=== PATIENT | female | born 1935 | race Caucasian/White ===

== ENCOUNTER 2021-01-21 10:48 | Inpatient (IN) | payer MEDICARE ==
[2021-01-21 11:36] LABS: CHLORIDE,CL 103 mmol/L (98-107); SODIUM,NA 143 mmol/L (136-145)
--- NOTE | 2021-01-21 11:46 | EDM.PDOC ---
ED HPI GENERAL MEDICAL PROBLEM - General Chief Complaint: Lower Extremity Injury/Pain Stated Complaint: Left hip pain Time Seen by Provider: 01/21/21 11:00 Source of Information: Reports: Patient History Limitations: Reports: No Limitations - History of Present Illness INITIAL COMMENTS - FREE TEXT/NARRATIVE: Patient comes to ER with acute left sided low back pain that radiates into thigh. Also new numbness that affects lateral/anterior thigh that stretches down past knee. Severe pain with ambulation. Started suddenly while she was trying to get out of her chair on 01/13. Pain improves with rest/no weight bearing but is always present. No history of trauma/recent falls. Uses walker for ambulation. History of bilateral hip and knee replacement and significant degenerative spinal disease with scoliosis. No loss of bowel or bladder control but admits to some chronic urinary incontinence. Has had accidents however in bed/etc due to inability to get out of bed/chair due to the pain. Seen twice in ER in [facility] for same issue. Both time taken by EMS. Discharged after being evaluated both times. First time given steroids IV/PO along with Tramadol. Second time they gave her Valium. Plain films performed/no acute fractures identified per history. No advanced imaging performed. Also unable to get to her own kitchen to get food/prepare food and spent long periods of time without access to regular meals. Lives alone. Is in [place] due to family member being in area with hope to receive extra assistance, however comes to to ER due to continued severe pain and continued inability to perform ADLs. 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: Other Medication(s), Other (see below) Other Treatments [employer]PORATE WEBMASTER: Tramadol Left Hip Pain Score (Numeric/FACES): 5 - Related Data Allergies Allergy/AdvReac Type Severity Reaction Status Date / Time No Known Allergies Allergy Verified 01/21/21 10:50 Home Meds: Home Meds Aspirin [Aspirin EC] 1 tab PO DAILY 01/21/21 [History] Citalopram Hydrobromide [Celexa] 1 tab PO DAILY 01/21/21 [History] Furosemide [Lasix] 1 tab PO QPM PRN 01/21/21 [History] Furosemide [Lasix] 2 tab PO QAM 01/21/21 [History] Levothyroxine [Synthroid] 1 tab PO ASDIRECTED 01/21/21 [History] Levothyroxine [Synthroid] 1 tab PO ASDIRECTED 01/21/21 [History] allopurinoL [Zyloprim] 1 tab PO DAILY 01/21/21 [History] amLODIPine Besylate [Amlodipine Besylate] 1 tab PO DAILY 01/21/21 [History] buPROPion HCL [Bupropion Xl] 1 tab PO DAILY 01/21/21 [History] Past Medical History HEENT History: Reports: Impaired Vision Cardiovascular History: Reports: High Cholesterol, Hypertension Gastrointestinal History: Reports: Irritable Bowel Syndrome Genitourinary History: Reports: Chronic Renal Insuffiency, Renal Calculus, Urinary Incontinence Musculoskeletal History: Reports: Arthritis, Back Pain, Chronic, Gout, Neck Pain, Chronic, Osteoarthritis Psychiatric History: Reports: Anxiety, Depression Endocrine/Metabolic History: Reports: Diabetes, Type II, Hypothyroidism, Obesity/BMI 30+, Vitamin D Deficiency - Past Surgical History HEENT Surgical History: Reports: Cataract Surgery Respiratory Surgical History: Reports: Other (See Below) (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) GI Surgical History: Reports: Cholecystectomy Female Surgical History: Reports: Tubal Ligation Endocrine Surgical History: Reports: Thyroidectomy Musculoskeletal Surgical History: Reports: Carpal Tunnel, Hip Replacement, Knee Replacement, Shoulder Replacement, Shoulder Surgery - History Comment History Comment: Uses walker for ambulation Social & Family History - Tobacco Use Tobacco Use Status *Q: Former Tobacco User Used Tobacco, but Quit: Yes Month/Year Tobacco Last Used: 1959 Second Hand Smoke Exposure: No - Caffeine Use Caffeine Use: Reports: Coffee - Alcohol Use Alcohol Use History: Yes Alcohol Use in Last Twelve Months: No Alcohol Use Frequency: Not Used in Over 1 Year Alcohol Use Comment: Recovering alcoholic - Recreational Drug Use Recreational Drug Use: No Drug Use in Last 12 Months: No - Living Situation & Occupation Living situation: Reports: , Alone Occupation: Retired Review of Systems - Review of Systems Review Of Systems: See Below Constitutional: Denies: Chills, Diaphoresis, Fever Eyes: Reports: Glasses. Denies: Vision Change Nose: Reports: No Symptoms Mouth/Throat: Reports: No Symptoms Respiratory: Reports: No Symptoms Cardiovascular: Reports: No Symptoms GI/Abdominal: Reports: No Symptoms Genitourinary: Reports: Incontinence Musculoskeletal: Reports: Neck Pain, Back Pain, Joint Pain (left hip). Denies: Joint Swelling Skin: Reports: Bruising (new bruising noted inner thigh of affected left leg) Neurological: Reports: Numbness (left upper leg/just past left knee), Paresthesia, Difficulty Walking (significant pain with ambulation). Denies: Confusion, Dizziness, Headache, Trouble Speaking, Change in Speech Psychiatric: Reports: Anxiety (from pain) ED EXAM, GENERAL - Physical Exam Exam: See Below Exam Limited By: No Limitations General Appearance: Alert, Obese, Other (Obvious significant distress when attempting to ambulate/change positions. Improved when allowed to sit still in bed. ) Eye Exam: Bilateral Eye: EOMI, PERRL Ears: Hearing Grossly Normal Nose: No: Nasal Deformity, Nasal Swelling, Nasal Drainage Throat/Mouth: Normal Lips, Normal Voice, No Airway Compromise Head: Atraumatic, Normocephalic Neck: Supple, Non-Tender, Full Range of Motion Respiratory/Chest: No Respiratory Distress, Lungs Clear, Normal Breath Sounds, No Accessory Muscle Use, Chest Non-Tender Cardiovascular: Normal Peripheral Pulses, Regular Rate, Rhythm, No JVD, Systolic Murmur GI/Abdominal: Normal Bowel Sounds, Soft, Non-Tender, No Abnormal Bruit, Pelvis Stable (Female) Exam: Deferred Rectal (Female) Exam: Deferred Back Exam: Decreased Range of Motion (left low back severe pain when trying to raise leg off of bed), Paraspinal Tenderness (lumbar area/more so left side), Vertebral Tenderness (lumbar area/L-S junction), Other (+ straight leg raise on left). No: CVA Tenderness (L), CVA Tenderness (R), Muscle Spasm Extremities: Normal Capillary Refill, Pedal Edema (mild/bilateral), Leg Pain (left thight/hip area), Limited Range of Motion (Unable to move left leg at all without severe pain left low back/hip/thigh). No: Tia's Sign, Increased Warmth, Mottled, Pallor, Redness Neurological: Alert, Oriented, CN II-XII Intact, Normal Reflexes, Abnormal Gait (unable to ambulate without severe pain), Sensory/Motor Deficit, Other (numbness to light touch left leg anterior/lateral thigh. Ends just below left knee anteriorly) Psychiatric: Anxious Skin Exam: Warm, Dry, Ecchymosis (scattered bruising noted all 4 limbs, newer bruise moderately large noted medial left thigh) Course - Vital Signs Last Recorded V/S: Last Vital Signs Temp 36.6 C 01/21/21 11:13 Pulse 67 01/21/21 11:13 Resp 18 01/21/21 11:13 BP 178/75 H 01/21/21 11:13 Pulse Ox 99 01/21/21 11:13 - Orders/Labs/Meds Orders: Active Orders 24 hr Category Date Time Status CULTURE URINE [RM] Stat Lab 01/21/21 11:15 Received PRO B-TYPE NATRIUR PEPT,BNPPRO [CHEM] Stat Lab 01/21/21 11:56 Ordered Sodium Chloride 0.9% [Saline Flush] Med 01/21/21 12:01 Ordered 10 ml FLUSH ASDIRECTED PRN Saline Lock Insert [OM.PC] Routine Oth 01/21/21 12:01 Ordered Medication Orders Sodium Chloride (Sodium Chloride 0.9% 10 Ml Syringe) 10 ml FLUSH ASDIRECTED PRN PRN Reason: Keep Vein Open Labs: Laboratory Tests 01/21/21 01/21/21 01/21/21 Range/Units 11:15 11:15 11:15 WBC 9.2 (4.0-10.2) K/uL RBC 4.62 (3.77-5.09) M/uL Hgb 14.3 (11.7-15.5) g/dL Hct 43.7 (34.0-46.0) % MCV 94.6 (84.0-98.0) fL MCH 31.0 (28.2-33.3) pg MCHC 32.7 (31.7-36.0) g/dL RDW 14.6 H (11.2-14.1) % Plt Count 268 (150-350) K/uL Neut % (Auto) 72.0 (45.0-80.0) % Lymph % (Auto) 18.1 (10.0-50.0) % [place] % (Auto) 8.6 (2.0-14.0) % Eos % (Auto) 1.1 (0.0-5.0) % Baso % (Auto) 0.2 (0.0-2.0) % Neut # (Auto) 6.60 (1.40-7.00) K/uL Lymph # (Auto) 1.66 (0.50-3.50) K/uL [place] # (Auto) 0.79 (0.00-1.00) K/uL Eos # (Auto) 0.10 (0.00-0.50) K/uL Baso # (Auto) 0.02 (0.00-0.20) K/uL Sodium 143 (136-145) mmol/L Potassium 4.0 (3.5-5.1) mmol/L Chloride 103 (98-107) mmol/L Carbon Dioxide 27.6 (21.0-32.0) mmol/L BUN 33 H (7-18) mg/dL Creatinine 1.49 H (0.51-1.17) mg/dL Est Cr Clr Drug Dosing TNP Estimated GFR (MDRD) 33 mL/min Glucose 127 H (70-99) mg/dL Calcium 9.5 (8.5-10.1) mg/dL Magnesium 2.3 (1.8-2.4) mg/dL Total Bilirubin 1.2 H (0.2-1.0) mg/dL AST 21 (15-37) U/L ALT 28 (12-78) U/L Alkaline Phosphatase 69 (46-116) IU/L Total Protein 6.9 (6.4-8.2) g/dL Albumin 3.7 (3.4-5.0) g/dL Specimen Type Urincc Urine Color Yellow Urine Appearance Slightly cloudy Urine pH 5.5 (5.0-9.0) Ur Specific [place] 1.020 (1.005-1.030) Urine Protein 100 H (NEGATIVE) mg/dL Urine Glucose (UA) Negative (NEGATIVE) mg/dL Urine Ketones Trace H (NEGATIVE) mg/dL Urine Occult Blood Negative (NEGATIVE) Urine Nitrite Negative (NEGATIVE) Urine Bilirubin Small H (NEGATIVE) Urine Urobilinogen 0.2 (0.2-1.0) E.U./dL Ur Leukocyte Esterase Moderate H (NEGATIVE) Urine RBC 0-5 /HPF Urine WBC 10-20 H /HPF Ur Epithelial Cells Moderate H /LPF Urine Bacteria Few (NONE TO FEW) /HPF Meds: Medications Generic Name Dose Route Start Last Admin Trade Name Freq PRN Reason Stop Dose Admin Sodium Chloride 10 ml 01/21/21 12:01 Sodium Chloride 0.9% 10 Ml Syringe FLUSH ASDIRECTED PRN Keep Vein Open Discontinued Medications Generic Name Dose Route Start Last Admin Trade Name Freq PRN Reason Stop Dose Admin Amlodipine Besylate 10 mg 01/21/21 12:00 Amlodipine 5 Mg Tab PO 01/21/21 12:01 ONETIME ONE Diazepam 5 mg 01/21/21 12:00 Diazepam 5 Mg Tab PO 01/21/21 12:01 ONETIME ONE Furosemide 40 mg 01/21/21 12:00 Furosemide 40 Mg Tab PO 01/21/21 12:01 ONETIME ONE - Re-Assessments/Exams Free Text/Narrative Re-Assessment/Exam: 01/21/21 12:15 BP noted to be elevated/patient has not taken her HTN meds this morning. Elevated BPs note and patient's morning BP meds given in ER. Normal WBC. Small amount WBCs noted on UA. Patient denies UTI complaints. Will order UC for further evaluation. GFR 33. This is actually an improvement per patient as previously she has been as low as 27-28. Given the pattern of pain/numbness differential includes disc injury/nerve root impingement. Current plan is to admit patient for pain control and further evaluation of the new pain and associated neuro changes. Departure - Departure Time of Disposition: 12:18 Disposition: Admitted As Inpatient 68 Condition: Good Clinical Impression: Acute pain of left hip, Numbness of left lower extremity, Impaired mobility and ADLs Left low back pain Qualifiers: Chronicity: acute Sciatica presence: unspecified whether sciatica present Qualified Code(s): M54.5 - Low back pain - Discharge Information *PRESCRIPTION DRUG MONITORING PROGRAM REVIEWED*: Not Applicable *COPY OF PRESCRIPTION DRUG MONITORING REPORT IN PATIENT [place]: Not Applicable Referrals: PCP,Unknown [Primary Care Provider] - Forms: ED Department Discharge Sepsis Event Note (ED) - Evaluation Sepsis Screening Result: No Definite Risk - Focused Exam Vital Signs: Vital Signs Temp Pulse Resp BP Pulse Ox 01/21/21 11:13 36.6 C 67 18 178/75 H 99 - Problem List & Annotations (1) Acute pain of left hip SNOMED Code(s): 29676973 Code(s): M25.552 - PAIN IN LEFT HIP Status: Acute Priority: High Current Visit: Yes Onset Date: 01/13/21 Annotation/Comment:: Acute/severe. No improvement despite pain medications/muscle relaxants/steroids. Unable to perform ADLs/feed self. Admit for pain control, further imaging, and PT/OT (2) Left low back pain SNOMED Code(s): 066063129 Code(s): M54.5 - LOW BACK PAIN Status: Acute Priority: High Current Visit: Yes Onset Date: 01/13/21 Annotation/Comment:: Some degree of chronic low back pain and neck pain. This is new acute pain. As above. Will perform CT imaging for better visualization (patient did have plain films performed during ER visit in [place]) and to look for disc herniation/nerve impingement. Qualifiers: Chronicity: acute Sciatica presence: unspecified whether sciatica present Qualified Code(s): M54.5 - Low back pain (3) Numbness of left lower extremity SNOMED Code(s): 578448810 Code(s): R20.0 - ANESTHESIA OF SKIN Status: Acute Priority: High Current Visit: Yes Onset Date: 01/13/21 Annotation/Comment:: As above (4) Impaired mobility and ADLs SNOMED Code(s): 278191048, 927581702 Code(s): Z74.09 - OTHER REDUCED MOBILITY; Z78.9 - OTHER SPECIFIED HEALTH STATUS Status: Acute Priority: High Current Visit: Yes Onset Date: 01/13/21 Annotation/Comment:: as above. Currently unable to perform ADLs at home such as obtaining food/dressing self/toileting (5) Hypertension SNOMED Code(s): 67107850 Code(s): I10 - ESSENTIAL (PRIMARY) HYPERTENSION Status: Chronic Priority: Medium Current Visit: Yes Annotation/Comment:: Historically patient runs high per history. Attempts at further reduction have led to syncopal events. Observe trends. Qualifiers: Hypertension type: primary hypertension Qualified Code(s): I10 - Essential (primary) hypertension (6) Diabetes mellitus, insulin dependent (IDDM), controlled SNOMED Code(s): 37235539, 653776744, 163737094 Code(s): SHU6486 - Status: Chronic Priority: Low Current Visit: No Annotation/Comment:: Diet controlled (7) Depression with anxiety SNOMED Code(s): 781003523 Code(s): F41.8 - OTHER SPECIFIED ANXIETY DISORDERS Status: Chronic Priority: Medium Current Visit: Yes Annotation/Comment:: Increased anxiety since pain started 01/13 (8) History of gout SNOMED Code(s): 672114503 Code(s): Z87.39 - PERSONAL HISTORY OF DISEASES OF THE MS SYS AND CONN TISS Status: Chronic Priority: Low Current Visit: No Annotation/Comment:: Taking Allopurinol. No recent problems. (9) Hypothyroidism SNOMED Code(s): 80277950 Code(s): E03.9 - HYPOTHYROIDISM, UNSPECIFIED Status: Chronic Priority: Low Current Visit: No Annotation/Comment:: On medication for this and routinely monitored by PCP Qualifiers: Hypothyroidism type: unspecified Qualified Code(s): E03.9 - Hypothyroidism, unspecified - Problem List Review Problem List Initiated/Reviewed/Updated: Yes - My Orders Last 24 Hours: My Active Orders 01/21/21 11:15 CULTURE URINE [RM] Stat 01/21/21 11:56 PRO B-TYPE NATRIUR PEPT,BNPPRO [CHEM] Stat 01/21/21 12:01 Sodium Chloride 0.9% [Saline Flush] 10 ml FLUSH ASDIRECTED PRN Saline Lock Insert [OM.PC] Routine - Assessment/Plan Admission H&P: Please use this note as an admission H&P Last 24 Hours: My Active Orders 01/21/21 11:15 CULTURE URINE [RM] Stat 01/21/21 11:56 PRO B-TYPE NATRIUR PEPT,BNPPRO [CHEM] Stat 01/21/21 12:01 Sodium Chloride 0.9% [Saline Flush] 10 ml FLUSH ASDIRECTED PRN Saline Lock Insert [OM.PC] Routine Assessment:: as above Plan: as above. Anticipate 3-4 day stay depending on clinical course and ability to achieve pain control/be able to safely perform ADLs. May need to consider Swing Bed. PT/OT consult.
[2021-01-21] MEDS ORDERED: amLODIPine 5 MG Tab PO ONE (12:00)
[2021-01-21] MEDS ORDERED: Furosemide 40 MG Tab PO ONE (12:00)
[2021-01-21] MEDS ORDERED: Diazepam 5 MG Tab PO ONE (12:00)
[2021-01-21] MEDS ORDERED: Sodium Chloride 0.9% 10 ML Syringe FLUSH PRN (12:01)
[2021-01-21] MEDS ORDERED: Ondansetron 4 MG/2 ML SDV IVPUSH PRN (13:00)
[2021-01-21] MEDS ORDERED: Levothyroxine 100 MCG Tab PO ONE (13:00)
[2021-01-21] MEDS ORDERED: Acetaminophen 325 MG Tab PO PRN (13:00)
[2021-01-21] MEDS ORDERED: traMADol 50 MG Tab PO PRN (13:00)
[2021-01-21] MEDS: buPROPion 150 MG Tab.ER PO SCH (13:41)
[2021-01-21] MEDS: Allopurinol 100 MG Tab PO SCH (13:41)
[2021-01-21] MEDS: methylPREDNISolone Sodium Succinate 40 MG/1 ML SDV IVPUSH SCH (13:41)
[2021-01-21] MEDS: Citalopram 20 MG Tab PO SCH (13:41)
[2021-01-21] MEDS: Aspirin 81 MG Tab.EC PO SCH (13:41)
[2021-01-21] MEDS ORDERED: Losartan 50 MG Tab PO ONE (19:00)
--- NOTE | 2021-01-21 19:04 | PCM.SN.2 ---
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 BPs noted to be running in 180s/80. Call placed to [facility] where patient is followed by Nephrology. circus hand MD, , recommended starting patient on 25mg Losartan. If renal labs remain stable over the next week can consider increasing dose to 50mg daily if needed.
[2021-01-21] MEDS: Acetaminophen Soln 160 MG/5 ML UD Cup PO PRN (21:56)
[2021-01-22] MEDS ORDERED: Diazepam 5 MG Tab PO PRN
[2021-01-22] MEDS: Acetaminophen Soln 160 MG/5 ML UD Cup PO PRN (04:22)
[2021-01-22] MEDS ORDERED: Furosemide 40 MG Tab PO SCH (08:00)
[2021-01-22] MEDS: buPROPion 150 MG Tab.ER PO SCH (08:05)
[2021-01-22] MEDS: Losartan 50 MG Tab PO SCH (08:07)
[2021-01-22] MEDS: amLODIPine 5 MG Tab PO SCH (08:09)
[2021-01-22] MEDS: Citalopram 20 MG Tab PO SCH (08:11)
[2021-01-22] MEDS: Levothyroxine 88 MCG Tab PO SCH (08:11)
[2021-01-22] MEDS: Aspirin 81 MG Tab.EC PO SCH (08:11)
[2021-01-22] MEDS: Enoxaparin 30 MG/0.3 ML Syringe SUBCUT SCH (08:12)
[2021-01-22] MEDS: Allopurinol 100 MG Tab PO SCH (08:12)
[2021-01-22] MEDS: methylPREDNISolone Sodium Succinate 40 MG/1 ML SDV IVPUSH SCH (08:14)
[2021-01-22] MEDS: traMADol 50 MG Tab PO SCH ×2 (13:07→19:30)
--- NOTE | 2021-01-22 13:19 | PCM.PN ---
- General Info Date of Service: 01/22/21 Admission Dx/Problem (Free Text): Acute severe left low back/hip/thigh pain. Subjective Update: Still with severe pain when ambulating. Feels overall improved however and feels that receiving regular meals/having access to fluids contributed to feeling better. Functional Status: Reports: Other (Pain improved but still severe at times, particularly with ambulation) Pain Score: 4 - Review of Systems General: Denies: Fever, Fatigue, Malaise, Chills, Night Sweats HEENT: Reports: Glasses Pulmonary: Reports: No Symptoms Cardiovascular: Reports: No Symptoms Gastrointestinal: Reports: Diarrhea. Denies: Abdominal Pain, Hematochezia, Nausea, Vomiting Genitourinary: Reports: No Symptoms Musculoskeletal: Reports: Back Pain, Leg Pain, Joint Pain Skin: Reports: Bruising (left inner thigh, plus scattered bruises she attributes to thin skin) Neurological: Reports: Numbness (left thigh), Difficulty Walking, Gait Disturbance. Denies: Confusion, Dizziness, Headache, Trouble Speaking, Change in Speech Psychiatric: Reports: No Symptoms - Patient Data Vitals - Most Recent: Last Vital Signs Temp 36.4 C 01/22/21 12:00 Pulse 64 01/22/21 12:00 Resp 16 01/22/21 12:00 BP 140/72 01/22/21 12:00 Pulse Ox 96 01/22/21 12:00 Weight - Most Recent: 90.718 kg I&O - Last 24 Hours: Intake & Output 01/21/21 01/22/21 01/22/21 22:59 06:59 14:59 Intake Total 240 870 Balance 240 870 Lab Results Last 24 Hours: Laboratory Results - last 24 hr 01/21/21 01/22/21 01/22/21 Range/Units 16:34 07:10 07: WBC 9.8 (4.0-10.2) K/uL RBC 4.09 (3.77-5.09) M/uL Hgb 12.7 D (11.7-15.5) g/dL Hct 38.9 (34.0-46.0) % MCV 95.1 (84.0-98.0) fL MCH 31.1 (28.2-33.3) pg MCHC 32.6 (31.7-36.0) g/dL RDW 14.4 H (11.2-14.1) % Plt Count 237 (150-350) K/uL Neut % (Auto) 77.7 (45.0-80.0) % Lymph % (Auto) 13.0 (10.0-50.0) % [place] % (Auto) 8.7 (2.0-14.0) % Eos % (Auto) 0.4 (0.0-5.0) % Baso % (Auto) 0.2 (0.0-2.0) % Neut # (Auto) 7.62 H (1.40-7.00) K/uL Lymph # (Auto) 1.28 (0.50-3.50) K/uL [place] # (Auto) 0.85 (0.00-1.00) K/uL Eos # (Auto) 0.04 (0.00-0.50) K/uL Baso # (Auto) 0.02 (0.00-0.20) K/uL Sodium (136-145) mmol/L Potassium (3.5-5.1) mmol/L Chloride (98-107) mmol/L Carbon Dioxide (21.0-32.0) mmol/L BUN (7-18) mg/dL Creatinine (0.51-1.17) mg/dL Est Cr Clr Drug Dosing mL/min Estimated GFR (MDRD) mL/min Glucose (70-99) mg/dL POC Glucose 145 H 117 H (70-99) mg/dL Calcium (8.5-10.1) mg/dL 01/22/21 01/22/21 Range/Units 07:21 11:28 WBC (4.0-10.2) K/uL RBC (3.77-5.09) M/uL Hgb (11.7-15.5) g/dL Hct (34.0-46.0) % MCV (84.0-98.0) fL MCH (28.2-33.3) pg MCHC (31.7-36.0) g/dL RDW (11.2-14.1) % Plt Count (150-350) K/uL Neut % (Auto) (45.0-80.0) % Lymph % (Auto) (10.0-50.0) % [place] % (Auto) (2.0-14.0) % Eos % (Auto) (0.0-5.0) % Baso % (Auto) (0.0-2.0) % Neut # (Auto) (1.40-7.00) K/uL Lymph # (Auto) (0.50-3.50) K/uL [place] # (Auto) (0.00-1.00) K/uL Eos # (Auto) (0.00-0.50) K/uL Baso # (Auto) (0.00-0.20) K/uL Sodium 145 (136-145) mmol/L Potassium 4.1 (3.5-5.1) mmol/L Chloride 106 (98-107) mmol/L Carbon Dioxide 28.9 (21.0-32.0) mmol/L BUN 43 H (7-18) mg/dL Creatinine 1.64 H (0.51-1.17) mg/dL Est Cr Clr Drug Dosing 22.44 mL/min Estimated GFR (MDRD) 30 mL/min Glucose 117 H (70-99) mg/dL POC Glucose 127 H (70-99) mg/dL Calcium 8.8 (8.5-10.1) mg/dL Med Orders - Current: Current Medications Acetaminophen (Acetaminophen Soln 160 Mg/5 Ml Ud Cup) 650 mg PO Q6H PRN PRN Reason: Pain (mild 1-3) Last Admin: 01/22/21 04:22 Dose: 650 mg Documented by: Allopurinol (Allopurinol 100 Mg Tab) 100 mg PO DAILY [facility] Last Admin: 01/22/21 08:12 Dose: 100 mg Documented by: Amlodipine Besylate (Amlodipine 5 Mg Tab) 10 mg PO DAILY [facility] Last Admin: 01/22/21 08:09 Dose: 10 mg Documented by: Aspirin (Aspirin 81 Mg Tab.Ec) 81 mg PO DAILY [facility] Last Admin: 01/22/21 08:11 Dose: 81 mg Documented by: Bupropion HCl (Bupropion 150 Mg Tab.Er) 150 mg PO DAILY [facility] Last Admin: 01/22/21 08:05 Dose: 150 mg Documented by: Cholecalciferol (Cholecalciferol (Vitamin D3) Drops 400 Units/1 Ml 50 Ml Bottle) 2,000 units PO DAILY [facility] Citalopram Hydrobromide (Citalopram 20 Mg Tab) 40 mg PO DAILY [facility] Last Admin: 01/22/21 08:11 Dose: 40 mg Documented by: Diazepam (Diazepam 5 Mg Tab) 5 mg PO Q12H PRN PRN Reason: Spasms Enoxaparin Sodium (Enoxaparin 30 Mg/0.3 Ml Syringe) 30 mg SUBCUT Q24H [facility] Last Admin: 01/22/21 08:12 Dose: 30 mg Documented by: Furosemide (Furosemide 40 Mg Tab) 40 mg PO QAM [facility] Last Admin: 01/22/21 08:06 Dose: 40 mg Documented by: Furosemide (Furosemide 20 Mg Tab) 20 mg PO DAILY [facility] Stop: 01/28/21 08:01 Lactobacillus Rhamnosus (Lactobacillus Rhamnosus Gg (Probiotic) Cap) 1 cap PO BID [facility] Levothyroxine Sodium (Levothyroxine 88 Mcg Tab) 88 mcg PO Q48H [facility] Last Admin: 01/22/21 08:11 Dose: 88 mcg Documented by: Levothyroxine Sodium (Levothyroxine 100 Mcg Tab) 100 mcg PO Q48H [facility] Losartan Potassium (Losartan 50 Mg Tab) 25 mg PO DAILY [facility] Last Admin: 01/22/21 08:07 Dose: 25 mg Documented by: Methylprednisolone Sodium Succinate (Methylprednisolone Sodium Succinate 40 Mg/1 Ml Sdv) 40 mg IVPUSH DAILY [facility] Stop: 01/23/21 08:01 Last Admin: 01/22/21 08:14 Dose: 40 mg Documented by: Ondansetron HCl (Ondansetron 4 Mg/2 Ml Sdv) 4 mg IVPUSH Q6H PRN PRN Reason: Nausea/Vomiting Sodium Chloride (Sodium Chloride 0.9% 10 Ml Syringe) 10 ml FLUSH ASDIRECTED PRN PRN Reason: Keep Vein Open Tramadol HCl (Tramadol 50 Mg Tab) 50 mg PO Q4H PRN PRN Reason: Pain (moderate 4-6) Last Admin: 01/22/21 08:13 Dose: 50 mg Documented by: Tramadol HCl (Tramadol 50 Mg Tab) 50 mg PO Q6H [facility] Last Admin: 01/22/21 13:07 Dose: 50 mg Documented by: Discontinued Medications Acetaminophen (Acetaminophen 325 Mg Tab) 650 mg PO Q4H PRN PRN Reason: Pain (Mild 1-3)/fever Amlodipine Besylate (Amlodipine 5 Mg Tab) 10 mg PO ONETIME ONE Stop: 01/21/21 12:01 Last Admin: 01/21/21 12:07 Dose: 10 mg Documented by: Diazepam (Diazepam 5 Mg Tab) 5 mg PO ONETIME ONE Stop: 01/21/21 12:01 Last Admin: 01/21/21 12:07 Dose: 5 mg Documented by: Furosemide (Furosemide 40 Mg Tab) 40 mg PO ONETIME ONE Stop: 01/21/21 12:01 Last Admin: 01/21/21 12:07 Dose: 40 mg Documented by: Levothyroxine Sodium (Levothyroxine 100 Mcg Tab) 100 mcg PO ONETIME ONE Stop: 01/21/21 13:01 Last Admin: 01/21/21 13:41 Dose: 100 mcg Documented by: Losartan Potassium (Losartan 50 Mg Tab) 25 mg PO ONETIME ONE Stop: 01/21/21 19:01 Last Admin: 01/21/21 19:30 Dose: 25 mg Documented by: - Exam Quality Assessment: DVT Prophylaxis General: Alert, Oriented, Cooperative, No Acute Distress HEENT: Pupils Equal, Pupils Reactive, EOMI, Mucous Membr. Moist/[place] Neck: Supple Lungs: Clear to Auscultation, Rub Cardiovascular: Regular Rate, Regular Rhythm GI/Abdominal Exam: Soft, Non-Tender, No Distention (Female) Exam: Deferred Back Exam: Paraspinal Tenderness (low back/left greater than right), Vertebral Tenderness (lumbar spine area) Extremities: Normal Capillary Refill, Pedal Edema (mild/bilat. ), Limited Range of Motion (left leg/hip), Other (Tender with palpation over medial thigh/patient has bruise in same area). No: Joint Swelling, Tia's Sign, Increased Warmth, Mottled, Pallor, Redness Peripheral Pulses: 2+: Dorsalis Pedis (L), Dorsalis Pedis (R) Skin: Warm, Dry, Intact, Ecchymosis Neurological: No New Focal Deficit Psy/Mental Status: Alert, Normal Affect, Normal Mood - Patient Data Lab Results Last 24 hrs: Laboratory Results - last 24 hr 01/21/21 01/22/21 01/22/21 Range/Units 16:34 07:10 07:21 WBC 9.8 (4.0-10.2) K/uL RBC 4.09 (3.77-5.09) M/uL Hgb 12.7 D (11.7-15.5) g/dL Hct 38.9 (34.0-46.0) % MCV 95.1 (84.0-98.0) fL MCH 31.1 (28.2-33.3) pg MCHC 32.6 (31.7-36.0) g/dL RDW 14.4 H (11.2-14.1) % Plt Count 237 (150-350) K/uL Neut % (Auto) 77.7 (45.0-80.0) % Lymph % (Auto) 13.0 (10.0-50.0) % [place] % (Auto) 8.7 (2.0-14.0) % Eos % (Auto) 0.4 (0.0-5.0) % Baso % (Auto) 0.2 (0.0-2.0) % Neut # (Auto) 7.62 H (1.40-7.00) K/uL Lymph # (Auto) 1.28 (0.50-3.50) K/uL [place] # (Auto) 0.85 (0.00-1.00) K/uL Eos # (Auto) 0.04 (0.00-0.50) K/uL Baso # (Auto) 0.02 (0.00-0.20) K/uL Sodium (136-145) mmol/L Potassium (3.5-5.1) mmol/L Chloride (98-107) mmol/L Carbon Dioxide (21.0-32.0) mmol/L BUN (7-18) mg/dL Creatinine (0.51-1.17) mg/dL Est Cr Clr Drug Dosing mL/min Estimated GFR (MDRD) mL/min Glucose (70-99) mg/dL POC Glucose 145 H 117 H (70-99) mg/dL Calcium (8.5-10.1) mg/dL 01/22/21 01/22/21 Range/Units 07:21 11:28 WBC (4.0-10.2) K/uL RBC (3.77-5.09) M/uL Hgb (11.7-15.5) g/dL Hct (34.0-46.0) % MCV (84.0-98.0) fL MCH (28.2-33.3) pg MCHC (31.7-36.0) g/dL RDW (11.2-14.1) % Plt Count (150-350) K/uL Neut % (Auto) (45.0-80.0) % Lymph % (Auto) (10.0-50.0) % [place] % (Auto) (2.0-14.0) % Eos % (Auto) (0.0-5.0) % Baso % (Auto) (0.0-2.0) % Neut # (Auto) (1.40-7.00) K/uL Lymph # (Auto) (0.50-3.50) K/uL [place] # (Auto) (0.00-1.00) K/uL Eos # (Auto) (0.00-0.50) K/uL Baso # (Auto) (0.00-0.20) K/uL Sodium 145 (136-145) mmol/L Potassium 4.1 (3.5-5.1) mmol/L Chloride 106 (98-107) mmol/L Carbon Dioxide 28.9 (21.0-32.0) mmol/L BUN 43 H (7-18) mg/dL Creatinine 1.64 H (0.51-1.17) mg/dL Est Cr Clr Drug Dosing 22.44 mL/min Estimated GFR (MDRD) 30 mL/min Glucose 117 H (70-99) mg/dL POC Glucose 127 H (70-99) mg/dL Calcium 8.8 (8.5-10.1) mg/dL Result Diagrams: 01/22/21 07:21 01/22/21 07:21 Sepsis Event Note - Evaluation Sepsis Screening Result: No Definite Risk - Focused Exam Vital Signs: Vital Signs Temp Pulse Pulse Resp BP BP Pulse Ox 01/22/21 12:00 36.4 C 64 16 140/72 96 01/22/21 10:45 152/75 H 01/22/21 08:09 185/70 H 01/22/21 08:07 185/70 H 01/22/21 06:00 36.4 C 58 L 14 200/77 H 98 - Problem List & Annotations (1) Acute pain of left hip SNOMED Code(s): 64103363 Code(s): M25.552 - PAIN IN LEFT HIP Status: Acute Priority: High Current Visit: Yes Onset Date: 01/13/21 Annotation/Comment:: Acute/severe. No improvement despite pain medications/muscle relaxants/steroids. Unable to perform ADLs/feed self. Admitted for pain control, further imaging, and PT/OT. 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 However patient also has soft tissue bruising and tenderness medial left thigh and now says she felt a "pop" when pain started so there could also be a soft tissue tear involved. Consider MRI next week when locally available. PT/OT assessed patient and she is candidate for Swing Bed given the severe sudden decrease in level of functioning and current physical pain/limitations. (2) Left low back pain SNOMED Code(s): 821012981 Code(s): M54.5 - LOW BACK PAIN Status: Acute Priority: High Current Visit: Yes Onset Date: 01/13/21 Qualifiers: Chronicity: acute Sciatica presence: unspecified whether sciatica present Qualified Code(s): M54.5 - Low back pain Annotation/Comment:: Some degree of chronic low back pain and neck pain. This is new acute left hip/low back/medial thigh pain. As above. (3) Numbness of left lower extremity SNOMED Code(s): 537171095 Code(s): R20.0 - ANESTHESIA OF SKIN Status: Acute Priority: High Current Visit: Yes Onset Date: 01/13/21 Annotation/Comment:: New. As above (4) Impaired mobility and ADLs SNOMED Code(s): 084002032, 071877319 Code(s): Z74.09 - OTHER REDUCED MOBILITY; Z78.9 - OTHER SPECIFIED HEALTH STATUS Status: Acute Priority: High Current Visit: Yes Onset Date: 01/13/21 Annotation/Comment:: as above. Currently unable to perform ADLs at home such as obtaining food/dressing self/toileting. (5) Hypertension SNOMED Code(s): 44661155 Code(s): I10 - ESSENTIAL (PRIMARY) HYPERTENSION Status: Chronic Priority: Medium Current Visit: Yes Qualifiers: Hypertension type: primary hypertension Qualified Code(s): I10 - Essential (primary) hypertension Annotation/Comment:: Historically patient runs high per history. Losartan added to regimen. BUN/Cr a bit higher today despite patient's rehydration. Will continue to monitor with daily labs. Will temporarily decrease daily Lasix to 20mg daily to decrease stress on renal function. BPs currently improved. Continue to observe trends. (6) Diabetes mellitus, insulin dependent (IDDM), controlled SNOMED Code(s): 19310783, 347925276, 923131080 Code(s): MSA0036 - Status: Chronic Priority: Low Current Visit: No Annotation/Comment:: Diet controlled. Patient usually adhears to a Low Carb diet which will not be available during inpatient stay. Glucose at home usually under 110. Anticipate worsening glucose control because of this but patient will resume usual diet at time of discharge. (7) Depression with anxiety SNOMED Code(s): 667194465 Code(s): F41.8 - OTHER SPECIFIED ANXIETY DISORDERS Status: Chronic Priority: Medium Current Visit: Yes Annotation/Comment:: Increased anxiety since pain started 01/13. Improved today on 01/22 (8) History of gout SNOMED Code(s): 661985444 Code(s): Z87.39 - PERSONAL HISTORY OF DISEASES OF THE MS SYS AND CONN TISS Status: Chronic Priority: Low Current Visit: No Annotation/Comment:: Taking Allopurinol. No recent problems. (9) Hypothyroidism SNOMED Code(s): 57672235 Code(s): E03.9 - HYPOTHYROIDISM, UNSPECIFIED Status: Chronic Priority: Low Current Visit: No Qualifiers: Hypothyroidism type: unspecified Qualified Code(s): E03.9 - Hypothyroidism, unspecified Annotation/Comment:: On medication for this and routinely monitored by PCP (10) Dehydration SNOMED Code(s): 84426653 Code(s): E86.0 - DEHYDRATION Status: Acute Priority: Medium Current Visit: Yes Annotation/Comment:: Hgb 14.3 dropped to 12.7 today. Suspect drop is due to patient being dehydrated as result of immobility and being unable to perform ADLs such as get to kitchen for past week. She is feeling improved today after having access to fluids/regular meals. - Problem List Review Problem List Initiated/Reviewed/Updated: Yes - My Orders Last 24 Hours: My Active Orders 01/21/21 12:33 Patient Status [ADT] Routine Blood Glucose Check, Bedside [RC] TIDMEALS May Shower [RC] ASDIRECTED Oxygen Therapy [RC] .PRN Up With Assistance [RC] ASDIRECTED VTE/DVT Education [RC] PER UNIT ROUTINE Vital Signs [RC] Q6HR Consult to Case Management/Publisher Assistant [CONS] Routine OT Evaluation and Treatment [CONS] Routine PT Evaluation and Treatment [CONS] Routine Resuscitation Status Routine 01/21/21 12:34 Pulse Oximetry [RC] .PRN 01/21/21 12:45 methylPREDNISolone Sod Succ [Solu-MEDROL] 40 mg IVPUSH DAILY 01/21/21 12:50 Lumbar Spine wo Cont [CT] Routine 01/21/21 13:00 Aspirin [Halfprin] 81 mg PO DAILY Citalopram [Celexa] 40 mg PO DAILY Ondansetron [Zofran] 4 mg IVPUSH Q6H PRN allopurinoL [Zyloprim] 100 mg PO DAILY buPROPion [Wellbutrin XL] 150 mg PO DAILY traMADol [Ultram] 50 mg PO Q4H PRN 01/21/21 21:28 Acetaminophen [Tylenol Solution 160 MG/5 ML UD Cup] 650 mg PO Q6H PRN 01/22/21 00:00 diazePAM [Valium.] 5 mg PO Q12H PRN 01/22/21 08:00 Furosemide [Lasix] 40 mg PO QAM Levothyroxine [Synthroid] 88 mcg PO Q48H Losartan [Cozaar] 25 mg PO DAILY amLODIPine [Norvasc] 10 mg PO DAILY 01/22/21 08:30 Enoxaparin [Lovenox] 30 mg SUBCUT Q24H 01/22/21 13:08 VITAMIN D,25-HYDROXY [CHEM] Routine 01/22/21 14:00 traMADol [Ultram] 50 mg PO Q6H 01/22/21 18:00 Lactobacillus Rhamnosus GG [Culturelle] 1 cap PO BID 01/23/21 05:15 BASIC METABOLIC PANEL,BMP [CHEM] AM CBC WITH AUTO DIFF [HEME] AM 01/23/21 08:00 Cholecalciferol (Vitamin D3) [D--JUDITH Drops] 2,000 units PO DAILY Furosemide [Lasix] 20 mg PO DAILY Levothyroxine [Synthroid] 100 mcg PO Q48H - Assessment Assessment:: as above - Plan Plan:: As above. Anticipate additional 1-2 days inpatient care with continued PT/OT. Patient will likely need transfer to Swing Bed for continued PT and OT given current continued severe pain with activity and inability to perform ADLs.
[2021-01-22] MEDS: Lactobacillus Rhamnosus GG (Probiotic) Cap PO SCH (18:33)
[2021-01-23] MEDS: traMADol 50 MG Tab PO SCH ×4 (01:07→20:41)
[2021-01-23] MEDS ORDERED: Levothyroxine 100 MCG Tab PO SCH (08:00)
[2021-01-23 08:09] LABS: HEMOGLOBIN A1C 5.9 % (4.3-5.7)
[2021-01-23] MEDS: methylPREDNISolone Sodium Succinate 40 MG/1 ML SDV IVPUSH SCH (08:18)
[2021-01-23] MEDS: Enoxaparin 30 MG/0.3 ML Syringe SUBCUT SCH (08:19)
[2021-01-23] MEDS: Cholecalciferol (Vitamin D3) Drops 400 Units/1 ML 50 ML Bottle PO SCH (08:23)
[2021-01-23] MEDS: Lactobacillus Rhamnosus GG (Probiotic) Cap PO SCH ×2 (08:28→17:32)
[2021-01-23] MEDS: Allopurinol 100 MG Tab PO SCH (08:29)
[2021-01-23] MEDS: Furosemide 20 MG Tab PO SCH (08:30)
[2021-01-23] MEDS: buPROPion 150 MG Tab.ER PO SCH (08:32)
[2021-01-23] MEDS: Aspirin 81 MG Tab.EC PO SCH (08:32)
[2021-01-23] MEDS: Losartan 50 MG Tab PO SCH (08:33)
[2021-01-23] MEDS: amLODIPine 5 MG Tab PO SCH (08:34)
[2021-01-23] MEDS: Citalopram 20 MG Tab PO SCH (08:35)
[2021-01-23] MEDS: hydrALAZINE 10 MG Tab PO SCH ×2 (13:46→20:41)
--- NOTE | 2021-01-23 14:27 | PCM.PN ---
- General Info Date of Service: 01/23/21 Admission Dx/Problem (Free Text): Acute severe left low back/hip/thigh pain. Subjective Update: Reasonably comfortable with laying down. Pain when she attempts to change position. Sharp pain when ambulating. Functional Status: Reports: Pain Controlled (at rest), Tolerating Diet, Ambulating (able to ambulate 10 feet with PT), Urinating. Denies: New Symptoms - Review of Systems General: Reports: No Symptoms HEENT: Reports: Glasses Pulmonary: Reports: No Symptoms Cardiovascular: Reports: No Symptoms Gastrointestinal: Reports: Diarrhea. Denies: Abdominal Pain, Difficulty Swallowing, Melena, Nausea, Vomiting Genitourinary: Reports: No Symptoms Musculoskeletal: Reports: Other (No change in usual baseline pain, still with very sharp pain left low back/hip/inner thigh with movement/ambulation) Skin: Reports: Bruising Neurological: Reports: Numbness (left thigh), Tremors (chronic tremor hands when eating/holding cup etc. ), Difficulty Walking, Gait Disturbance. Denies: Confusion, Dizziness, Headache, Seizure, Syncope, Trouble Speaking, Change in Speech Psychiatric: Reports: No Symptoms - Patient Data Vitals - Most Recent: Last Vital Signs Temp 36.7 C 01/23/21 12:00 Pulse 67 01/23/21 12:00 Resp 18 01/23/21 12:00 BP 135/55 L 01/23/21 13:46 Pulse Ox 97 01/23/21 12:00 Weight - Most Recent: 90.718 kg I&O - Last 24 Hours: Intake & Output 01/22/21 01/23/21 01/23/21 22:59 06:59 14:59 Intake Total 480 600 Balance 480 600 Lab Results Last 24 Hours: Laboratory Results - last 24 hr 01/22/21 01/23/21 01/23/21 Range/Units 07: 07:23 07:30 WBC 10.8 H (4.0-10.2) K/uL RBC 4.19 (3.77-5.09) M/uL Hgb 13.1 (11.7-15.5) g/dL Hct 40.3 (34.0-46.0) % MCV 96.2 (84.0-98.0) fL MCH 31.3 (28.2-33.3) pg MCHC 32.5 (31.7-36.0) g/dL RDW 14.9 H (11.2-14.1) % Plt Count 274 (150-350) K/uL Neut % (Auto) 69.3 (45.0-80.0) % Lymph % (Auto) 22.2 (10.0-50.0) % [place] % (Auto) 7.4 (2.0-14.0) % Eos % (Auto) 0.9 (0.0-5.0) % Baso % (Auto) 0.2 (0.0-2.0) % Neut # (Auto) 7.51 H (1.40-7.00) K/uL Lymph # (Auto) 2.40 (0.50-3.50) K/uL [place] # (Auto) 0.80 (0.00-1.00) K/uL Eos # (Auto) 0.10 (0.00-0.50) K/uL Baso # (Auto) 0.02 (0.00-0.20) K/uL Sodium (136-145) mmol/L Potassium (3.5-5.1) mmol/L Chloride (98-107) mmol/L Carbon Dioxide (21.0-32.0) mmol/L BUN (7-18) mg/dL Creatinine (0.51-1.17) mg/dL Est Cr Clr Drug Dosing mL/min Estimated GFR (MDRD) mL/min Glucose (70-99) mg/dL POC Glucose 86 (70-99) mg/dL Hemoglobin A1c (4.3-5.7) % Calcium (8.5-10.1) mg/dL Vitamin D 25-Hydroxy 34.5 (30-100) ng/mL 01/23/21 01/23/21 01/23/21 Range/Units 07:30 07:30 11:12 WBC (4.0-10.2) K/uL RBC (3.77-5.09) M/uL Hgb (11.7-15.5) g/dL Hct (34.0-46.0) % MCV (84.0-98.0) fL MCH (28.2-33.3) pg MCHC (31.7-36.0) g/dL RDW (11.2-14.1) % Plt Count (150-350) K/uL Neut % (Auto) (45.0-80.0) % Lymph % (Auto) (10.0-50.0) % [place] % (Auto) (2.0-14.0) % Eos % (Auto) (0.0-5.0) % Baso % (Auto) (0.0-2.0) % Neut # (Auto) (1.40-7.00) K/uL Lymph # (Auto) (0.50-3.50) K/uL [place] # (Auto) (0.00-1.00) K/uL Eos # (Auto) (0.00-0.50) K/uL Baso # (Auto) (0.00-0.20) K/uL Sodium 145 (136-145) mmol/L Potassium 4.2 (3.5-5.1) mmol/L Chloride 106 (98-107) mmol/L Carbon Dioxide 30.7 (21.0-32.0) mmol/L BUN 48 H (7-18) mg/dL Creatinine 1.87 H (0.51-1.17) mg/dL Est Cr Clr Drug Dosing 19.68 mL/min Estimated GFR (MDRD) 26 mL/min Glucose 84 (70-99) mg/dL POC Glucose 172 H (70-99) mg/dL Hemoglobin A1c 5.9 H (4.3-5.7) % Calcium 9.2 (8.5-10.1) mg/dL Vitamin D 25-Hydroxy (30-100) ng/mL [facility] Results Last 24 Hours: Microbiology 01/21/21 11:15 Urine Culture - Final Urine, Voided MIXED POSITIVE IZABELA DAY 2 Med Orders - Current: Current Medications Acetaminophen (Acetaminophen Soln 160 Mg/5 Ml Ud Cup) 650 mg PO Q6H PRN PRN Reason: Pain (mild 1-3) Last Admin: 01/22/21 04:22 Dose: 650 mg Documented by: Allopurinol (Allopurinol 100 Mg Tab) 100 mg PO DAILY [facility] Last Admin: 01/23/21 08:29 Dose: 100 mg Documented by: Amlodipine Besylate (Amlodipine 5 Mg Tab) 10 mg PO DAILY [facility] Last Admin: 01/23/21 08:34 Dose: 10 mg Documented by: Aspirin (Aspirin 81 Mg Tab.Ec) 81 mg PO DAILY [facility] Last Admin: 01/23/21 08:32 Dose: 81 mg Documented by: Bupropion HCl (Bupropion 150 Mg Tab.Er) 150 mg PO DAILY [facility] Last Admin: 01/23/21 08:32 Dose: 150 mg Documented by: Cholecalciferol (Cholecalciferol (Vitamin D3) Drops 400 Units/1 Ml 50 Ml Bottle) 2,000 units PO DAILY [facility] Last Admin: 01/23/21 08:23 Dose: 5 drop Documented by: Citalopram Hydrobromide (Citalopram 20 Mg Tab) 40 mg PO DAILY [facility] Last Admin: 01/23/21 08:35 Dose: 40 mg Documented by: Diazepam (Diazepam 5 Mg Tab) 5 mg PO Q12H PRN PRN Reason: Spasms Furosemide (Furosemide 40 Mg Tab) 40 mg PO QAM [facility] Last Admin: 01/22/21 08:06 Dose: 40 mg Documented by: Furosemide (Furosemide 20 Mg Tab) 20 mg PO DAILY [facility] Stop: 01/28/21 08:01 Last Admin: 01/23/21 08:30 Dose: 20 mg Documented by: Hydralazine HCl (Hydralazine 10 Mg Tab) 10 mg PO Q8H [facility] Last Admin: 01/23/21 13:46 Dose: Not Given Documented by: Lactobacillus Rhamnosus (Lactobacillus Rhamnosus Gg (Probiotic) Cap) 1 cap PO BID [facility] Last Admin: 01/23/21 08:28 Dose: 1 cap Documented by: Levothyroxine Sodium (Levothyroxine 88 Mcg Tab) 88 mcg PO Q48H [facility] Last Admin: 01/22/21 08:11 Dose: 88 mcg Documented by: Levothyroxine Sodium (Levothyroxine 100 Mcg Tab) 100 mcg PO Q48H [facility] Last Admin: 01/23/21 08:30 Dose: 100 mcg Documented by: Ondansetron HCl (Ondansetron 4 Mg/2 Ml Sdv) 4 mg IVPUSH Q6H PRN PRN Reason: Nausea/Vomiting Sodium Chloride (Sodium Chloride 0.9% 10 Ml Syringe) 10 ml FLUSH ASDIRECTED PRN PRN Reason: Keep Vein Open Tramadol HCl (Tramadol 50 Mg Tab) 50 mg PO Q4H PRN PRN Reason: Pain (moderate 4-6) Last Admin: 01/22/21 08:13 Dose: 50 mg Documented by: Tramadol HCl (Tramadol 50 Mg Tab) 50 mg PO Q6H [facility] Last Admin: 01/23/21 13:50 Dose: 50 mg Documented by: Discontinued Medications Acetaminophen (Acetaminophen 325 Mg Tab) 650 mg PO Q4H PRN PRN Reason: Pain (Mild 1-3)/fever Amlodipine Besylate (Amlodipine 5 Mg Tab) 10 mg PO ONETIME ONE Stop: 01/21/21 12:01 Last Admin: 01/21/21 12:07 Dose: 10 mg Documented by: Diazepam (Diazepam 5 Mg Tab) 5 mg PO ONETIME ONE Stop: 01/21/21 12:01 Last Admin: 01/21/21 12:07 Dose: 5 mg Documented by: Enoxaparin Sodium (Enoxaparin 30 Mg/0.3 Ml Syringe) 30 mg SUBCUT Q24H [facility] Last Admin: 01/23/21 08:19 Dose: 30 mg Documented by: Furosemide (Furosemide 40 Mg Tab) 40 mg PO ONETIME ONE Stop: 01/21/21 12:01 Last Admin: 01/21/21 12:07 Dose: 40 mg Documented by: Levothyroxine Sodium (Levothyroxine 100 Mcg Tab) 100 mcg PO ONETIME ONE Stop: 01/21/21 13:01 Last Admin: 01/21/21 13:41 Dose: 100 mcg Documented by: Losartan Potassium (Losartan 50 Mg Tab) 25 mg PO ONETIME ONE Stop: 01/21/21 19:01 Last Admin: 01/21/21 19:30 Dose: 25 mg Documented by: Losartan Potassium (Losartan 50 Mg Tab) 25 mg PO DAILY [facility] Last Admin: 01/23/21 08:33 Dose: 25 mg Documented by: Methylprednisolone Sodium Succinate (Methylprednisolone Sodium Succinate 40 Mg/1 Ml Sdv) 40 mg IVPUSH DAILY [facility] Stop: 01/23/21 08:01 Last Admin: 01/23/21 08:18 Dose: 40 mg Documented by: - Exam Quality Assessment: DVT Prophylaxis General: Alert, Oriented, Cooperative, No Acute Distress HEENT: Pupils Equal, Pupils Reactive, EOMI, Mucous Membr. Moist/[place] Neck: Supple Lungs: Clear to Auscultation, Normal Respiratory Effort Cardiovascular: Regular Rate, Regular Rhythm GI/Abdominal Exam: Normal Bowel Sounds, Soft, Non-Tender, No Distention (Female) Exam: Deferred Back Exam: Paraspinal Tenderness (left lower lumbar area), Vertebral Tenderness (lumbar area). No: Muscle Spasm Extremities: Normal Capillary Refill, Pedal Edema (mild), Limited Range of Motion (left hip). No: Tia's Sign, Increased Warmth, Mottled, Pallor, Redness Skin: Warm, Dry Neurological: No New Focal Deficit Psy/Mental Status: Alert, Normal Affect, Normal Mood - Patient Data Lab Results Last 24 hrs: Laboratory Results - last 24 hr 01/22/21 01/23/21 01/23/21 Range/Units 07:21 07:23 07:30 WBC 10.8 H (4.0-10.2) K/uL RBC 4.19 (3.77-5.09) M/uL Hgb 13.1 (11.7-15.5) g/dL Hct 40.3 (34.0-46.0) % MCV 96.2 (84.0-98.0) fL MCH 31.3 (28.2-33.3) pg MCHC 32.5 (31.7-36.0) g/dL RDW 14.9 H (11.2-14.1) % Plt Count 274 (150-350) K/uL Neut % (Auto) 69.3 (45.0-80.0) % Lymph % (Auto) 22.2 (10.0-50.0) % [place] % (Auto) 7.4 (2.0-14.0) % Eos % (Auto) 0.9 (0.0-5.0) % Baso % (Auto) 0.2 (0.0-2.0) % Neut # (Auto) 7.51 H (1.40-7.00) K/uL Lymph # (Auto) 2.40 (0.50-3.50) K/uL [place] # (Auto) 0.80 (0.00-1.00) K/uL Eos # (Auto) 0.10 (0.00-0.50) K/uL Baso # (Auto) 0.02 (0.00-0.20) K/uL Sodium (136-145) mmol/L Potassium (3.5-5.1) mmol/L Chloride (98-107) mmol/L Carbon Dioxide (21.0-32.0) mmol/L BUN (7-18) mg/dL Creatinine (0.51-1.17) mg/dL Est Cr Clr Drug Dosing mL/min Estimated GFR (MDRD) mL/min Glucose (70-99) mg/dL POC Glucose 86 (70-99) mg/dL Hemoglobin A1c (4.3-5.7) % Calcium (8.5-10.1) mg/dL Vitamin D 25-Hydroxy 34.5 (30-100) ng/mL 01/23/21 01/23/21 01/23/21 Range/Units 07:30 07:30 11:12 WBC (4.0-10.2) K/uL RBC (3.77-5.09) M/uL Hgb (11.7-15.5) g/dL Hct (34.0-46.0) % MCV (84.0-98.0) fL MCH (28.2-33.3) pg MCHC (31.7-36.0) g/dL RDW (11.2-14.1) % Plt Count (150-350) K/uL Neut % (Auto) (45.0-80.0) % Lymph % (Auto) (10.0-50.0) % [place] % (Auto) (2.0-14.0) % Eos % (Auto) (0.0-5.0) % Baso % (Auto) (0.0-2.0) % Neut # (Auto) (1.40-7.00) K/uL Lymph # (Auto) (0.50-3.50) K/uL [place] # (Auto) (0.00-1.00) K/uL Eos # (Auto) (0.00-0.50) K/uL Baso # (Auto) (0.00-0.20) K/uL Sodium 145 (136-145) mmol/L Potassium 4.2 (3.5-5.1) mmol/L Chloride 106 (98-107) mmol/L Carbon Dioxide 30.7 (21.0-32.0) mmol/L BUN 48 H (7-18) mg/dL Creatinine 1.87 H (0.51-1.17) mg/dL Est Cr Clr Drug Dosing 19.68 mL/min Estimated GFR (MDRD) 26 mL/min Glucose 84 (70-99) mg/dL POC Glucose 172 H (70-99) mg/dL Hemoglobin A1c 5.9 H (4.3-5.7) % Calcium 9.2 (8.5-10.1) mg/dL Vitamin D 25-Hydroxy (30-100) ng/mL Result Diagrams: 01/23/21 07:30 01/23/21 07:30 [facility] Results Last 24 hrs: Microbiology 01/21/21 11:15 Urine Culture - Final Urine, Voided MIXED POSITIVE IZABELA DAY 2 Sepsis Event Note - Evaluation Sepsis Screening Result: No Definite Risk - Focused Exam Vital Signs: Vital Signs Temp Pulse Resp BP BP Pulse Ox 01/23/21 13:46 135/55 L 01/23/21 12:00 36.7 C 67 18 135/55 L 97 01/23/21 08:34 191/77 H 01/23/21 08:33 191/77 H 01/23/21 06:00 36.7 C 53 L 16 191/77 H 96 - Problem List & Annotations (1) Acute pain of left hip SNOMED Code(s): 41114744 Code(s): M25.552 - PAIN IN LEFT HIP Status: Acute Priority: High Current Visit: Yes Onset Date: 01/13/21 Annotation/Comment:: Acute/severe. No improvement noted despite 2 ER evaluations, pain medications/muscle relaxant s/steroids. Unable to perform ADLs/feed self. Admitted for pain control, further imaging, and PT/OT. 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 However patient also has soft tissue bruising and tenderness medial left thigh and now says she felt a "pop" when pain started so there could also be a soft tissue tear involved. Consider MRI next week when locally available. PT/OT assessed patient and she is candidate for Swing Bed given the severe sudden decrease in level of functioning and current physical pain/limitations. Patient living independently at home prior to this. (2) Left low back pain SNOMED Code(s): 333407704 Code(s): M54.5 - LOW BACK PAIN Status: Acute Priority: High Current Visit: Yes Onset Date: 01/13/21 Qualifiers: Chronicity: acute Sciatica presence: unspecified whether sciatica present Qualified Code(s): M54.5 - Low back pain Annotation/Comment:: Some degree of chronic low back pain and neck pain. This is new acute left hip/low back/medial thigh pain. As above. (3) Neural foraminal stenosis of lumbosacral spine SNOMED Code(s): 091392836210 Code(s): M48.07 - SPINAL STENOSIS, LUMBOSACRAL REGION Status: Acute Priority: High Current Visit: Yes Annotation/Comment:: Severe neural foraminal stenosis noted on CT study performed during stay. Probable contributor to patient's current complaint of pain and numbness. (4) Numbness of left lower extremity SNOMED Code(s): 925640538 Code(s): R20.0 - ANESTHESIA OF SKIN Status: Acute Priority: High Current Visit: Yes Onset Date: 01/13/21 Annotation/Comment:: New. As above. Left thigh area. (5) Impaired mobility and ADLs SNOMED Code(s): 796122142, 252973109 Code(s): Z74.09 - OTHER REDUCED MOBILITY; Z78.9 - OTHER SPECIFIED HEALTH STATUS Status: Acute Priority: High Current Visit: Yes Onset Date: 01/13/21 Annotation/Comment:: as above. Currently unable to perform ADLs at home such as obtaining food/dressing self/toileting. (6) Hypertension SNOMED Code(s): 33648409 Code(s): I10 - ESSENTIAL (PRIMARY) HYPERTENSION Status: Chronic Priority: Medium Current Visit: Yes Qualifiers: Hypertension type: primary hypertension Qualified Code(s): I10 - Essential (primary) hypertension Annotation/Comment:: Historically patient runs high per history. Losartan added to regimen after initial consultation with her Nephrology group from [facility] in [place]/. Led to improved afternoon and evening pressures but she is still quite significantly elevated in the mornings. Bun/Cr/GFR has been increasing daily since change. After second consultation with will D/C Larsartan and instead place patient on Hydralazine TID. Lasix also decreased for several days in hopes of decreasing renal stress. (7) DM type 2 (diabetes mellitus, type 2) SNOMED Code(s): 88105219 Code(s): E11.9 - TYPE 2 DIABETES MELLITUS WITHOUT COMPLICATIONS Status: Chronic Priority: Low Current Visit: Yes Qualifiers: Diabetes mellitus prison insulin use: without prison use Diabetes mellitus complication status: with kidney complications Diabetes mellitus complication detail: with chronic kidney disease Chronic kidney disease stage: stage 3 (moderate) Chronic kidney disease stage 3 subtype: stage 3b (GFR 30- 44) Qualified Code(s): E11.22 - Type 2 diabetes mellitus with diabetic chronic kidney disease; N18.32 - Chronic kidney disease, stage 3b Annotation/Comment:: GRF has been increasing since patient's admission, suspect due to adding Losartan. Also may have contribution from SoluMedrol. Losartan discontinued. SoluMedrol course completed. Patient reviewed with from [facility] Nephrology concerning kidney function and working on BP control as noted above. (8) Depression with anxiety SNOMED Code(s): 155864619 Code(s): F41.8 - OTHER SPECIFIED ANXIETY DISORDERS Status: Chronic Priority: Medium Current Visit: Yes Annotation/Comment:: Increased anxiety since pain started 01/13. Improved today on 01/22 (9) History of gout SNOMED Code(s): 590220265 Code(s): Z87.39 - PERSONAL HISTORY OF DISEASES OF THE MS SYS AND CONN TISS Status: Chronic Priority: Low Current Visit: No Annotation/Comment:: Shima omalley Allopurinol. No recent problems. (10) Hypothyroidism SNOMED Code(s): 09195348 Code(s): E03.9 - HYPOTHYROIDISM, UNSPECIFIED Status: Chronic Priority: Low Current Visit: No Qualifiers: Hypothyroidism type: unspecified Qualified Code(s): E03.9 - Hypothyroidism, unspecified Annotation/Comment:: On medication for this and routinely monitored by PCP (11) Dehydration SNOMED Code(s): 13523150 Code(s): E86.0 - DEHYDRATION Status: Acute Priority: Medium Current Visit: Yes Annotation/Comment:: Hgb 14.3 dropped to 12.7 today. Suspect drop is due to patient being dehydrated as result of immobility and being unable to perform ADLs such as get to kitchen for past week. She is feeling improved today after having access to fluids/regular meals. - Problem List Review Problem List Initiated/Reviewed/Updated: Yes - My Orders Last 24 Hours: My Active Orders 01/22/21 14:00 traMADol [Ultram] 50 mg PO Q6H 01/22/21 18:00 Lactobacillus Rhamnosus GG [Culturelle] 1 cap PO BID 01/23/21 08:00 Cholecalciferol (Vitamin D3) [D--JUDITH Drops] 2,000 units PO DAILY Furosemide [Lasix] 20 mg PO DAILY Levothyroxine [Synthroid] 100 mcg PO Q48H 01/23/21 10:20 UA W/MICROSCOPIC [URIN] Routine 01/23/21 13:15 hydrALAZINE [Apresoline] 10 mg PO Q8H 01/24/21 05:15 BASIC METABOLIC PANEL,BMP [CHEM] AM CBC WITH AUTO DIFF [HEME] AM - Assessment Assessment:: as above - Plan Plan:: As above. Anticipate transferring patient to Swing Bed tomorrow for continued PT/OT. Patient unable to ambulate more than 10 feet and has severe discomfort while doing so. Previously living independently/able to cook/lightly clean/do laundry and complete ADLs. Patient is anticipated to be able to receive steroid injection tomorrow into left L4-5 and L5-S1 area and be observed for response. As noted above there may also be an acute soft tissue tear left medial thigh by history and exam. MRI will be available locally Wednesday of next week and current plan is to scan low back/thigh at that time. PT feels that patient will likely anticipate Swing Bed stay length of approximately 2 weeks, depending on response to therapy/time/injection.
[2021-01-24] MEDS: traMADol 50 MG Tab PO SCH ×2 (01:08→09:52)
[2021-01-24] MEDS ORDERED: hydrALAZINE 10 MG Tab PO SCH (06:00)
[2021-01-24] MEDS ORDERED: methylPREDNISolone Acetate 80 MG/ML SDV ONE ×2 (07:00→07:01)
[2021-01-24] MEDS ORDERED: Bupivacaine 0.25% 10 ML SDV ONE ×2 (07:00→07:01)
[2021-01-24] MEDS ORDERED: Iopamidol 612 MG/ML 15 ML SDV ONE ×2 (07:00→07:01)
[2021-01-24] MEDS: Lactobacillus Rhamnosus GG (Probiotic) Cap PO SCH (09:51)
[2021-01-24] MEDS: Cholecalciferol (Vitamin D3) Drops 400 Units/1 ML 50 ML Bottle PO SCH (09:51)
[2021-01-24] MEDS: Citalopram 20 MG Tab PO SCH (09:51)
[2021-01-24] MEDS: Aspirin 81 MG Tab.EC PO SCH (09:51)
[2021-01-24] MEDS: Furosemide 20 MG Tab PO SCH (09:51)
[2021-01-24] MEDS: amLODIPine 5 MG Tab PO SCH (09:51)
[2021-01-24] MEDS: Allopurinol 100 MG Tab PO SCH (09:52)
[2021-01-24] MEDS: Levothyroxine 88 MCG Tab PO SCH (09:52)
[2021-01-24] MEDS: buPROPion 150 MG Tab.ER PO SCH (09:52)
--- NOTE | 2021-01-24 10:00 | PCM.PCLESI ---
- Free Text/Narrative Note: Translaminar epidural steroid injection at L4. 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 The risks and benefits procedure were discussed. The benefit being reduction in pain. The risks being infection, bleeding, drug reactions, worsening pain over the next few days, fact that it may not work, possible nerve damage, possible intervascular injection leading to seizures, partial or total spinal.. Patient understands this and agrees to proceed. Prep: ChloraPrep. Local: 1% Xylocaine Procedure: Patient was brought in the operating room and placed in the prone positioner. The C-arm was brought in and squared up on the L4 interspace. The area was prepped in a wide manner. The area was scrubbed vigorously for approximately 1-1/2-2 minutes. The prep was allowed to dry completely. I donned sterile gloves, place a sterile fenestrated drape over the area, and maintain sterile technique throughout. I identified the appropriate landmarks. A sterile forceps was placed on the skin to attain exact targeting. A catarino was placed corresponding to that location on the skin. The skin was infiltrated with 1% lidocaine 2mL superficially and deeply. A 20-gauge Tuohy needle was placed in beam coaxially. The needle was advanced under fluoroscopy until it met the resistance of ligament of flavum. An additional 1 ml of the local anesthetic at the ligament of flavum. The C-arm was rotated into a lateral position. The needle was advanced using a loss resistance technique with saline.When loss resistance was obtained, a fluoroscopic image was saved showing needle position. A syringe containing Isovue-M 300 was connected and aspirated negatively. Contrast was injected under live fluoroscopy. Approximately 1 mL of contrast showed good spread at one level above and one level below the injection site and epidural fat was identified. An image was saved showing this. The C-arm was returned to the PA view. The syringe was aspirated negatively and an additional 1 mL of the Isovue-M 300 was injected under live fluoroscopy. This showed good spread within the epidural space and epidural fat was seen. There was no spread into the blood vessels. An image showing the contrast spread was saved. . A medication syringe containing a total volume of 6 mL was connected. This contained 2 mL of the local anesthetic, 3 mL of normal saline and 1 mL containing 40 mg of methylprednisolone. This syringe was aspirated negatively. The medication injected easily into the epidural space. Postinjection washout film was saved. The needle was removed. No bleeding was noted. A Band-Aid was applied. Patient was brought back to hospital floor where she is an inpatient. No untoward effects were noted. Vital signs were monitored. Patient was able to move lower extremities without difficulty. Patient reported pain of 0/10 down from 5/10 this represents a 100% improvement in pain. Assessment: Same as preprocedure. Plan: We will plan to see this patient back in approximately [] weeks to see the effectiveness of this injection. We'll have the patient watch for signs and symptoms of infection or significantly worsening pain and return to hospitals if this does become significant. Discharge instructions were done per nursing.
[2021-01-24 11:56] VITALS: BP 150/56; PULSE 61
--- NOTE | 2021-01-24 13:09 | PCM.DCSUM1 ---
Discharge Summary - Hospital Course Diagnosis: Stroke: No - Discharge Data Discharge Date: 01/24/21 Discharge Disposition: DC/Tfer W/I Hosp To [place] [id number] Condition: Good - Referral to Home Health Primary Care Physician: PCP Unknown - Discharge Diagnosis/Problem(s) (1) Acute pain of left hip SNOMED Code(s): 62022615 ICD Code: M25.552 - PAIN IN LEFT HIP Status: Acute Priority: High Onset Date: 01/13/21 Problem Details: Acute/severe/Resolved today after epidural injection by anesthesia. We will continue her Tramadol at this time scheduled as the lido/bupiv will wear off tonight and may take a few days for the steroid to kick in. Still difficult with ADLs due to deconditioning. 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 However patient also has soft tissue bruising and tenderness medial left thigh and now says she felt a "pop" when pain started so there could also be a soft tissue tear involved. MRI ordered for Wednesday for further evaluation. PT/OT assessed patient and transfer to [facility] per their recommendations for continue therapy. Patient living independently at home prior to this and we are hoping to return her to the same status. (2) Dehydration SNOMED Code(s): 46659474 ICD Code: E86.0 - DEHYDRATION Status: Acute Priority: Medium Problem Details: Hgb stabe at about 13. Resolved with good urine output. She is drinking fluids well and taking in good PO fluids. She is loving the meals here. (3) Impaired mobility and ADLs SNOMED Code(s): 991555995, 896621328 ICD Code: Z74.09 - OTHER REDUCED MOBILITY; Z78.9 - OTHER SPECIFIED HEALTH STATUS Status: Acute Priority: High Onset Date: 01/13/21 Problem Details: as above. Currently unable to perform ADLs at home such as obtaining food/dressing self/toileting. (4) Left low back pain SNOMED Code(s): 758482268 ICD Code: M54.5 - LOW BACK PAIN Status: Acute Priority: High Onset Date: 01/13/21 Problem Details: Some degree of chronic low back pain and neck pain. This is new acute left hip/low back/medial thigh pain. Most likely from the formalinal stenosis diagnosed on the CT scan and had 100% relief with the initial epidural injection. Continue to monitor MRI wednesday. Qualifiers: Chronicity: acute Sciatica presence: unspecified whether sciatica present Qualified Code(s): M54.5 - Low back pain (5) Neural foraminal stenosis of lumbosacral spine SNOMED Code(s): 975809594248 ICD Code: M48.07 - SPINAL STENOSIS, LUMBOSACRAL REGION Status: Acute Priority: High Problem Details: Severe neural foraminal stenosis noted on CT study performed during stay. Is the cause of the patient current pain and disability after resolution of pain with epidural injection. Will complete MRI wednesday for definitive evaluation. (6) Numbness of left lower extremity SNOMED Code(s): 486519312 ICD Code: R20.0 - ANESTHESIA OF SKIN Status: Acute Priority: High Onset Date: 01/13/21 Problem Details: New. As above. Left thigh area. (7) DM type 2 (diabetes mellitus, type 2) SNOMED Code(s): 53143303 ICD Code: E11.9 - TYPE 2 DIABETES MELLITUS WITHOUT COMPLICATIONS Status: Chronic Priority: Low Problem Details: HgA1c was 5.6 during hospitalization. Elevation of Blood sugar most likely from the acute strain of her illness as well as her solu-medrol for the back pain. Will change to diabetic diet during swingbed although her blood sugar today was 90. Monitor prn. GFR is slowly improving down from 1.82 to 1.72 most likely from the losartan which has been discontinued and the solumedrol. Will continue to monitor. Blood pressure still a little high but will work to maximize therapy with the recent addition of Hydralazine tid. Qualifiers: Diabetes mellitus senior living insulin use: without senior living use Diabetes mellitus complication status: with kidney complications Diabetes mellitus complication detail: with chronic kidney disease Chronic kidney disease stage: stage 3 (moderate) Chronic kidney disease stage 3 subtype: stage 3b (GFR 30- 44) Qualified Code(s): E11.22 - Type 2 diabetes mellitus with diabetic chronic kidney disease; N18.32 - Chronic kidney disease, stage 3b (8) Depression with anxiety SNOMED Code(s): 498136293 ICD Code: F41.8 - OTHER SPECIFIED ANXIETY DISORDERS Status: Chronic Priority: Medium Problem Details: Increased anxiety since pain started 01/13. Improved today on 01/22 (9) History of gout SNOMED Code(s): 393540770 ICD Code: Z87.39 - PERSONAL HISTORY OF DISEASES OF THE MS SYS AND CONN TISS Status: Chronic Priority: Low Problem Details: Taking Allopurinol. No recent problems. (10) Hypertension SNOMED Code(s): 02162550 ICD Code: I10 - ESSENTIAL (PRIMARY) HYPERTENSION Status: Chronic Priority: Medium Problem Details: Historically patient runs high per history. Losartan initially although worsening renal function so switched to hydralazine tid. Blood pressures improving 142/70 this evening. Her goal with DM and CKD would be under 130/80 so we are close will continue to monitor. No CP SOB. Creat improving. Adding daily weights while lasix is still halved until wednesday to decrease renal stress. Qualifiers: Hypertension type: primary hypertension Qualified Code(s): I10 - Essential (primary) hypertension (11) Hypothyroidism SNOMED Code(s): 72370033 ICD Code: E03.9 - HYPOTHYROIDISM, UNSPECIFIED Status: Chronic Priority: Low Problem Details: TSH today of 13.795 no recent change in her synthroid, she is currently on 100mcg q48hrs and 88mcg q48 hrs alternatively. will increase to 100mcg q24 consistently for now. Qualifiers: Hypothyroidism type: unspecified Qualified Code(s): E03.9 - Hypothyroidism, unspecified - Patient Summary/Data Consults: Consultations 01/21/21 12:33 Consult to Case Management/Wire Cutter [CONS] Routine OT Evaluation and Treatment [CONS] Routine PT Evaluation and Treatment [CONS] Routine Hospital Course: Patient was admitted into the hospital from home on 01-21-21 with severe left lower back pain and what appears to be radicular pain down her left leg also some concern for possible soft tissue injury such as a muscle injury on the medial aspect of her left thigh. The symptoms have been going on for the past couple of weeks. She was initially seen in [place] and not found to have any fractures. Although she continued to have severe pain in her lower back and her left hip. She was unable to do her activities of daily living due to the severe pain in the deconditioning that she had had over the couple of weeks of pain. There was no fall trauma or injury that the patient relates. She had a CT scan that showed some severe foraminal stenosis of the lumbar on 01-24-21 she was given an epidural injection by anesthesia care with 100% resolution of her pain initially. Although she still complains of weakness and difficulty with ambulation. She was noted to be hypertensive while in the hospital. She was initially started on losartan but had some worsening of her kidney function this was discontinued and she was started on hydralazine 3 times a day after discussion with nephrology. Her kidney function was up to 1.8 at 1 time but has improved down to 1.72 today. She did have some hyperglycemia during her h ospitalization although this is most likely due to Solu-Medrol that was used for her foraminal stenosis. Her blood sugar was 90 on this day. Her hemoglobin A1c was in the mid fives. She does live at home alone and she is still struggling with her activities of daily living therefore we will transfer her to swing bed today. Continue with physical therapy and occupational therapy and strengthening so that our goal is to return her home. We will also continue to fine-tune her blood pressure medication during her swing bed stay. We will closely monitor kidney function for continued improvement hopefully. - Discharge Plan *PRESCRIPTION DRUG MONITORING PROGRAM REVIEWED*: Not Applicable *COPY OF PRESCRIPTION DRUG MONITORING REPORT IN PATIENT [place]: Not Applicable Home Medications: Home Meds Aspirin [Aspirin EC] 1 tab PO DAILY 01/21/21 [History] Citalopram Hydrobromide [Celexa] 1 tab PO DAILY 01/21/21 [History] Furosemide [Lasix] 1 tab PO QPM PRN 01/21/21 [History] Furosemide [Lasix] 2 tab PO QAM 01/21/21 [History] Levothyroxine [Synthroid] 1 tab PO ASDIRECTED 01/21/21 [History] Levothyroxine [Synthroid] 1 tab PO ASDIRECTED 01/21/21 [History] allopurinoL [Zyloprim] 1 tab PO DAILY 01/21/21 [History] amLODIPine Besylate [Amlodipine Besylate] 1 tab PO DAILY 01/21/21 [History] buPROPion HCL [Bupropion Xl] 1 tab PO DAILY 01/21/21 [History] Forms: ED Department Discharge Referrals: PCP,Unknown [Primary Care Provider] - - Discharge Summary/Plan Comment DC Time >30 min.: Yes Discharge Summary/Plan Comment: Please see note above. Patient will be transferred to swing bed status under the care of Rayne Pacheco. Continue previous therapies. Will increase her Synthroid to 100mcg q24 up from 100mcg q48 and 88mcg q48hrs in a rotating fashion for her TSH of 13.795 Please use this note as the admission H&P for swingbed. - General Info Date of Service: 01/24/21 Admission Dx/Problem (Free Text: Acute severe left low back/hip/thigh pain. Subjective Update: The patient feels the best that she has since her symptoms started a couple of weeks ago. She did receive an epidural injection today by anesthesia and is absolutely pain-free. She continues to get her tramadol on a scheduled basis and would like to continue this as she has concerns for the initial lidocaine and bupivacaine wearing off. She offers no other complaints today. She is still weak and struggles with ambulation. Functional Status: Reports: Pain Controlled, Tolerating Diet, Ambulating, Urinating - Review of Systems General: Reports: No Symptoms HEENT: Reports: No Symptoms Pulmonary: Reports: No Symptoms Cardiovascular: Reports: No Symptoms Gastrointestinal: Reports: No Symptoms Genitourinary: Reports: No Symptoms Musculoskeletal: Reports: Other (Some generalized muscle weakness no focal weaknes no pain or other complaints. ) Skin: Reports: No Symptoms Neurological: Reports: No Symptoms Psychiatric: Reports: No Symptoms - Patient Data Vitals - Most Recent: Last Vital Signs Temp 97.5 F 01/24/21 11:54 Pulse 61 01/24/21 11:54 Resp 16 01/24/21 11:54 BP 150/56 H 01/24/21 11:54 Pulse Ox 98 01/24/21 11:54 Weight - Most Recent: 196 lb I&O - Last 24 hours: Intake & Output 01/23/21 01/24/21 01/24/21 22:59 06:59 14:59 Intake Total 300 560 Balance 300 560 Lab Results - Last 24 hrs: Laboratory Results - last 24 hr 01/23/21 01/23/21 01/24/21 Range/Units 16:34 16:45 08:13 WBC (4.0-10.2) K/uL RBC (3.77-5.09) M/uL Hgb (11.7-15.5) g/dL Hct (34.0-46.0) % MCV (84.0-98.0) fL MCH (28.2-33.3) pg MCHC (31.7-36.0) g/dL RDW (11.2-14.1) % Plt Count (150-350) K/uL Neut % (Auto) (45.0-80.0) % Lymph % (Auto) (10.0-50.0) % Dougherty % (Auto) (2.0-14.0) % Eos % (Auto) (0.0-5.0) % Baso % (Auto) (0.0-2.0) % Neut # (Auto) (1.40-7.00) K/uL Lymph # (Auto) (0.50-3.50) K/uL Dougherty # (Auto) (0.00-1.00) K/uL Eos # (Auto) (0.00-0.50) K/uL Baso # (Auto) (0.00-0.20) K/uL Sodium (136-145) mmol/L Potassium (3.5-5.1) mmol/L Chloride (98-107) mmol/L Carbon Dioxide (21.0-32.0) mmol/L BUN (7-18) mg/dL Creatinine (0.51-1.17) mg/dL Est Cr Clr Drug Dosing mL/min Estimated GFR (MDRD) mL/min Glucose (70-99) mg/dL POC Glucose 198 H 91 (70-99) mg/dL Calcium (8.5-10.1) mg/dL TSH, Ultra Sensitive (0.358-3.740) mIU/mL Specimen Type Urinblad Urine Color Yellow Urine Appearance Clear Urine pH 5.5 (5.0-9.0) Ur Specific Mcleod 1.015 (1.005-1.030) Urine Protein Negative (NEGATIVE) mg/dL Urine Glucose (UA) Negative (NEGATIVE) mg/dL Urine Ketones Negative (NEGATIVE) mg/dL Urine Occult Blood Negative (NEGATIVE) Urine Nitrite Negative (NEGATIVE) Urine Bilirubin Negative (NEGATIVE) Urine Urobilinogen 0.2 (0.2-1.0) E.U./dL Ur Leukocyte Esterase Small H (NEGATIVE) Urine RBC 0-5 /HPF Urine WBC 5-10 H /HPF Ur Epithelial Cells Few /LPF Urine Bacteria Rare (NONE TO FEW) /HPF 01/24/21 01/24/21 01/24/21 Range/Units 08:15 08:15 08:15 WBC 9.2 (4.0-10.2) K/uL RBC 4.00 (3.77-5.09) M/uL Hgb 12.5 (11.7-15.5) g/dL Hct 38.0 (34.0-46.0) % MCV 95.0 (84.0-98.0) fL MCH 31.3 (28.2-33.3) pg MCHC 32.9 (31.7-36.0) g/dL RDW 14.7 H (11.2-14.1) % Plt Count 225 (150-350) K/uL Neut % (Auto) 73.3 (45.0-80.0) % Lymph % (Auto) 17.0 (10.0-50.0) % Dougherty % (Auto) 8.5 (2.0-14.0) % Eos % (Auto) 1.0 (0.0-5.0) % Baso % (Auto) 0.2 (0.0-2.0) % Neut # (Auto) 6.72 (1.40-7.00) K/uL Lymph # (Auto) 1.56 (0.50-3.50) K/uL Dougherty # (Auto) 0.78 (0.00-1.00) K/uL Eos # (Auto) 0.09 (0.00-0.50) K/uL Baso # (Auto) 0.02 (0.00-0.20) K/uL Sodium 142 (136-145) mmol/L Potassium 4.3 (3.5-5.1) mmol/L Chloride 105 (98-107) mmol/L Carbon Dioxide 26.2 (21.0-32.0) mmol/L BUN 49 H (7-18) mg/dL Creatinine 1.72 H (0.51-1.17) mg/dL Est Cr Clr Drug Dosing 21.40 mL/min Estimated GFR (MDRD) 28 mL/min Glucose 90 (70-99) mg/dL POC Glucose (70-99) mg/dL Calcium 8.9 (8.5-10.1) mg/dL TSH, Ultra Sensitive 13.795 H (0.358-3.740) mIU/mL Specimen Type Urine Color Urine Appearance Urine pH (5.0-9.0) Ur Specific Mcleod (1.005-1.030) Urine Protein (NEGATIVE) mg/dL Urine Glucose (UA) (NEGATIVE) mg/dL Urine Ketones (NEGATIVE) mg/dL Urine Occult Blood (NEGATIVE) Urine Nitrite (NEGATIVE) Urine Bilirubin (NEGATIVE) Urine Urobilinogen (0.2-1.0) E.U./dL Ur Leukocyte Esterase (NEGATIVE) Urine RBC /HPF Urine WBC /HPF Ur Epithelial Cells /LPF Urine Bacteria (NONE TO FEW) /HPF ART Results - Last 24 hrs: Microbiology 01/21/21 11:15 Urine Culture - Final Urine, Voided MIXED POSITIVE IZABELA DAY 2 Med Orders - Current: Current Medications Acetaminophen (Acetaminophen Soln 160 Mg/5 Ml Ud Cup) 650 mg PO Q6H PRN PRN Reason: Pain (mild 1-3) Last Admin: 01/22/21 04:22 Dose: 650 mg Documented by: Allopurinol (Allopurinol 100 Mg Tab) 100 mg PO DAILY COUNT INCLUDES THE [facility] Last Admin: 01/24/21 09:52 Dose: Not Given Documented by: Amlodipine Besylate (Amlodipine 5 Mg Tab) 10 mg PO DAILY COUNT INCLUDES THE [facility] Last Admin: 01/24/21 09:51 Dose: Not Given Documented by: Aspirin (Aspirin 81 Mg Tab.Ec) 81 mg PO DAILY COUNT INCLUDES THE [facility] Last Admin: 01/24/21 09:51 Dose: Not Given Documented by: Bupropion HCl (Bupropion 150 Mg Tab.Er) 150 mg PO DAILY COUNT INCLUDES THE [facility] Last Admin: 01/24/21 09:52 Dose: Not Given Documented by: Cholecalciferol (Cholecalciferol (Vitamin D3) Drops 400 Units/1 Ml 50 Ml Bottle) 2,000 units PO DAILY COUNT INCLUDES THE [facility] Last Admin: 01/24/21 09:51 Dose: Not Given Documented by: Citalopram Hydrobromide (Citalopram 20 Mg Tab) 40 mg PO DAILY COUNT INCLUDES THE [facility] Last Admin: 01/24/21 09:51 Dose: Not Given Documented by: Diazepam (Diazepam 5 Mg Tab) 5 mg PO Q12H PRN PRN Reason: Spasms Furosemide (Furosemide 40 Mg Tab) 40 mg PO QAM COUNT INCLUDES THE [facility] Last Admin: 01/22/21 08:06 Dose: 40 mg Documented by: Furosemide (Furosemide 20 Mg Tab) 20 mg PO DAILY COUNT INCLUDES THE [facility] Stop: 01/28/21 08:01 Last Admin: 01/24/21 09:51 Dose: Not Given Documented by: Hydralazine HCl (Hydralazine 10 Mg Tab) 10 mg PO Q8H COUNT INCLUDES THE [facility] Last Admin: 01/24/21 06:16 Dose: 10 mg Documented by: Lactobacillus Rhamnosus (Lactobacillus Rhamnosus Gg (Probiotic) Cap) 1 cap PO BID COUNT INCLUDES THE [facility] Last Admin: 01/24/21 09:51 Dose: Not Given Documented by: Levothyroxine Sodium (Levothyroxine 88 Mcg Tab) 88 mcg PO Q48H COUNT INCLUDES THE [facility] Last Admin: 01/24/21 09:52 Dose: Not Given Documented by: Levothyroxine Sodium (Levothyroxine 100 Mcg Tab) 100 mcg PO Q48H COUNT INCLUDES THE [facility] Last Admin: 01/23/21 08:30 Dose: 100 mcg Documented by: Ondansetron HCl (Ondansetron 4 Mg/2 Ml Sdv) 4 mg IVPUSH Q6H PRN PRN Reason: Nausea/Vomiting Sodium Chloride (Sodium Chloride 0.9% 10 Ml Syringe) 10 ml FLUSH ASDIRECTED PRN PRN Reason: Keep Vein Open Tramadol HCl (Tramadol 50 Mg Tab) 50 mg PO Q4H PRN PRN Reason: Pain (moderate 4-6) Last Admin: 01/22/21 08:13 Dose: 50 mg Documented by: Tramadol HCl (Tramadol 50 Mg Tab) 50 mg PO Q6H COUNT INCLUDES THE [facility] Last Admin: 01/24/21 09:52 Dose: Not Given Documented by: Discontinued Medications Acetaminophen (Acetaminophen 325 Mg Tab) 650 mg PO Q4H PRN PRN Reason: Pain (Mild 1-3)/fever Amlodipine Besylate (Amlodipine 5 Mg Tab) 10 mg PO ONETIME ONE Stop: 01/21/21 12:01 Last Admin: 01/21/21 12:07 Dose: 10 mg Documented by: Bupivacaine HCl (Bupivacaine 0.25% 10 Ml Sdv) Confirm Administered Dose 10 ml .ROUTE .STK-MED ONE Stop: 01/24/21 07:02 Last Admin: 01/24/21 09:54 Dose: Not Given Documented by: Diazepam (Diazepam 5 Mg Tab) 5 mg PO ONETIME ONE Stop: 01/21/21 12:01 Last Admin: 01/21/21 12:07 Dose: 5 mg Documented by: Enoxaparin Sodium (Enoxaparin 30 Mg/0.3 Ml Syringe) 30 mg SUBCUT Q24H COUNT INCLUDES THE [facility] Last Admin: 01/23/21 08:19 Dose: 30 mg Documented by: Furosemide (Furosemide 40 Mg Tab) 40 mg PO ONETIME ONE Stop: 01/21/21 12:01 Last Admin: 01/21/21 12:07 Dose: 40 mg Documented by: Hydralazine HCl (Hydralazine 10 Mg Tab) 10 mg PO Q8H COUNT INCLUDES THE [facility] Last Admin: 01/23/21 20:41 Dose: 10 mg Documented by: Iopamidol (Iopamidol 612 Mg/Ml 15 Ml Sdv) Confirm Administered Dose 15 ml .ROUTE .STK-MED ONE Stop: 01/24/21 07:02 Last Admin: 01/24/21 09:54 Dose: Not Given Documented by: Levothyroxine Sodium (Levothyroxine 100 Mcg Tab) 100 mcg PO ONETIME ONE Stop: 01/21/21 13:01 Last Admin: 01/21/21 13:41 Dose: 100 mcg Documented by: Losartan Potassium (Losartan 50 Mg Tab) 25 mg PO ONETIME ONE Stop: 01/21/21 19:01 Last Admin: 01/21/21 19:30 Dose: 25 mg Documented by: Losartan Potassium (Losartan 50 Mg Tab) 25 mg PO DAILY COUNT INCLUDES THE [facility] Last Admin: 01/23/21 08:33 Dose: 25 mg Documented by: Methylprednisolone Acetate (Methylprednisolone Acetate 80 Mg/Ml Sdv) Confirm Administered Dose 80 mg .ROUTE .STK-MED ONE Stop: 01/24/21 07:02 Last Admin: 01/24/21 09:54 Dose: Not Given Documented by: Methylprednisolone Sodium Succinate (Methylprednisolone Sodium Succinate 40 Mg/1 Ml Sdv) 40 mg IVPUSH DAILY COUNT INCLUDES THE [facility] Stop: 01/23/21 08:01 Last Admin: 01/23/21 08:18 Dose: 40 mg Documented by: - Exam General: Reports: Alert, Oriented HEENT: Reports: Pupils Equal, Pupils Reactive Lungs: Reports: Clear to Auscultation, Normal Respiratory Effort Cardiovascular: Reports: Regular Rate, Regular Rhythm GI/Abdominal Exam: Normal Bowel Sounds, Soft (Female) Exam: Deferred Rectal (Female) Exam: Deferred Back Exam: Reports: Paraspinal Tenderness (Left lower. Epidural site dry intact no erythema swelling or redness. ) Extremities: Normal Inspection, Normal Capillary Refill, Limited Range of Motion (left hip). No: Pedal Edema, Arm Pain, Tia's Sign, Leg Pain, Increased Warmth, Mottled, Pallor, Redness Skin: Reports: Warm, Dry, Intact Neurological: Reports: No New Focal Deficit Psy/Mental Status: Reports: Alert, Normal Affect, Normal Mood
== END 2021-01-24 13:27 | disposition swing bed (61) | DRG 552 ==
LOC: LL.ED 10:48 → LL.MS 12:23
PROVIDERS: ADMIT Emergency Medicine; ATTEND Emergency Medicine
PROC: 3E0R33Z Introduction of Anti-inflammatory into Spinal Canal, Percutaneous Approach (ICD-10-PCS; principal; 2021-01-24)
PROC: 00HU33Z Insertion of Infusion Device into Spinal Canal, Percutaneous Approach (ICD-10-PCS; 2021-01-24)
DX: M48.07 Spinal stenosis, lumbosacral region (principal); E86.0 Dehydration; R20.0 Anesthesia of skin; Z74.09 Other reduced mobility; F41.8 Other specified anxiety disorders; E03.9 Hypothyroidism, unspecified; Z87.891 Personal history of nicotine dependence; H54.7 Unspecified visual loss; E78.00 Pure hypercholesterolemia, unspecified; M47.26 Other spondylosis with radiculopathy, lumbar region; E11.22 Type 2 diabetes mellitus with diabetic chronic kidney disease; N18.9 Chronic kidney disease, unspecified; R32 Unspecified urinary incontinence; G89.29 Other chronic pain; M10.9 Gout, unspecified; Z79.82 Long term (current) use of aspirin; Z79.890 Hormone replacement therapy; Z79.899 Other long term (current) drug therapy; I12.9 Hypertensive chronic kidney disease with stage 1 through stage 4 chronic kidney disease, or unspecified chronic kidney disease; N18.32 Chronic kidney disease, stage 3b; Z90.49 Acquired absence of other specified parts of digestive tract; Z98.42 Cataract extraction status, left eye; Z78.9 Other specified health status; Z87.39 Personal history of other diseases of the musculoskeletal system and connective tissue; Z98.41 Cataract extraction status, right eye; Z79.4 Long term (current) use of insulin; Z98.51 Tubal ligation status
CPT/HCPCS: 36415; 62323; 72131; 80048; 80053; 81001; 82306; 82947; 83036; 83735; 83880; 84443; 85025; 87086; 97163-GP; 97165-GO; 97530-GP; 99223; 99232; 99233; 99239; 99285-25; A9270-GY; J1040; J1650; J2920; J3490; Q9967

== ENCOUNTER 2021-01-24 10:00 | Inpatient (IN) | payer MEDICARE ==
[2021-01-24] MEDS ORDERED: Ondansetron 4 MG/2 ML SDV IVPUSH PRN (13:13)
[2021-01-24] MEDS ORDERED: Sodium Chloride 0.9% 10 ML Syringe FLUSH PRN (13:13)
[2021-01-24] MEDS: traMADol 50 MG Tab PO SCH ×2 (14:46→21:02)
[2021-01-24] MEDS: hydrALAZINE 10 MG Tab PO SCH ×2 (14:46→21:02)
[2021-01-24] MEDS: Lactobacillus Rhamnosus GG (Probiotic) Cap PO SCH (17:09)
[2021-01-24] MEDS ORDERED: Diazepam 5 MG Tab PO PRN (20:00)
[2021-01-25] MEDS: traMADol 50 MG Tab PO SCH ×4 (01:55→21:00)
[2021-01-25] MEDS: hydrALAZINE 10 MG Tab PO SCH ×3 (06:07→21:00)
[2021-01-25] MEDS: Citalopram 20 MG Tab PO SCH (07:57)
[2021-01-25] MEDS: Lactobacillus Rhamnosus GG (Probiotic) Cap PO SCH ×2 (07:58→17:09)
[2021-01-25] MEDS: amLODIPine 5 MG Tab PO SCH (07:58)
[2021-01-25] MEDS: Aspirin 81 MG Tab.EC PO SCH (07:59)
[2021-01-25] MEDS: buPROPion 150 MG Tab.ER PO SCH (07:59)
[2021-01-25] MEDS: Furosemide 20 MG Tab PO SCH (08:00)
[2021-01-25] MEDS: Levothyroxine 100 MCG Tab PO SCH (08:00)
[2021-01-25] MEDS ORDERED: Levothyroxine 100 MCG Tab PO SCH (08:00)
[2021-01-25] MEDS: Allopurinol 100 MG Tab PO SCH (08:00)
[2021-01-25] MEDS: Cholecalciferol (Vitamin D3) Drops 400 Units/1 ML 50 ML Bottle PO SCH (08:01)
[2021-01-25] MEDS ORDERED: Diphtheria,Pertussis(Acell),Tetanus Vaccine 0.5 ML Syringe IM ONE (15:23)
[2021-01-26] MEDS: traMADol 50 MG Tab PO SCH ×3 (05:02→15:50)
[2021-01-26] MEDS: hydrALAZINE 10 MG Tab PO SCH ×3 (06:15→21:43)
[2021-01-26] MEDS: buPROPion 150 MG Tab.ER PO SCH (07:19)
[2021-01-26] MEDS: amLODIPine 5 MG Tab PO SCH (07:20)
[2021-01-26] MEDS: Aspirin 81 MG Tab.EC PO SCH (07:20)
[2021-01-26] MEDS: Lactobacillus Rhamnosus GG (Probiotic) Cap PO SCH ×2 (07:21→20:27)
[2021-01-26] MEDS: Allopurinol 100 MG Tab PO SCH (07:21)
[2021-01-26] MEDS: Citalopram 20 MG Tab PO SCH (07:21)
[2021-01-26] MEDS: Levothyroxine 100 MCG Tab PO SCH (07:21)
[2021-01-26] MEDS: Cholecalciferol (Vitamin D3) Drops 400 Units/1 ML 50 ML Bottle PO SCH (07:22)
[2021-01-26] MEDS: Furosemide 20 MG Tab PO SCH (07:22)
[2021-01-26] MEDS ORDERED: Levothyroxine 88 MCG Tab PO SCH (08:00)
--- NOTE | 2021-01-26 11:44 | PCM.SN.2 ---
- Free Text/Narrative Note: Patient had an AURORA and 80mg of depomedral was given with the normal saline and the bupivicaine. Manisha Qureshi
[2021-01-26] MEDS: traMADol 50 MG Tab PO PRN ×2 (15:28→21:45)
[2021-01-27] MEDS: hydrALAZINE 10 MG Tab PO SCH ×3 (06:02→21:07)
[2021-01-27] MEDS: Citalopram 20 MG Tab PO SCH (07:26)
[2021-01-27] MEDS: Aspirin 81 MG Tab.EC PO SCH (07:26)
[2021-01-27] MEDS: Lactobacillus Rhamnosus GG (Probiotic) Cap PO SCH ×2 (07:27→21:07)
[2021-01-27] MEDS: Levothyroxine 100 MCG Tab PO SCH (07:27)
[2021-01-27] MEDS: Furosemide 20 MG Tab PO SCH (07:27)
[2021-01-27] MEDS: traMADol 50 MG Tab PO PRN ×3 (07:27→21:26)
[2021-01-27] MEDS: buPROPion 150 MG Tab.ER PO SCH (07:28)
[2021-01-27] MEDS: Allopurinol 100 MG Tab PO SCH (07:28)
[2021-01-27] MEDS: amLODIPine 5 MG Tab PO SCH (07:28)
[2021-01-27] MEDS: Cholecalciferol (Vitamin D3) Drops 400 Units/1 ML 50 ML Bottle PO SCH (07:30)
[2021-01-28] MEDS: hydrALAZINE 10 MG Tab PO SCH ×3 (06:15→21:27)
[2021-01-28] MEDS: buPROPion 150 MG Tab.ER PO SCH (08:05)
[2021-01-28] MEDS: Aspirin 81 MG Tab.EC PO SCH (08:05)
[2021-01-28] MEDS: Levothyroxine 100 MCG Tab PO SCH (08:06)
[2021-01-28] MEDS: Citalopram 20 MG Tab PO SCH (08:06)
[2021-01-28] MEDS: Furosemide 20 MG Tab PO SCH (08:06)
[2021-01-28] MEDS: Allopurinol 100 MG Tab PO SCH (08:06)
[2021-01-28] MEDS: amLODIPine 5 MG Tab PO SCH (08:07)
[2021-01-28] MEDS: Lactobacillus Rhamnosus GG (Probiotic) Cap PO SCH ×2 (08:07→21:27)
[2021-01-28] MEDS: Cholecalciferol (Vitamin D3) Drops 400 Units/1 ML 50 ML Bottle PO SCH (08:07)
[2021-01-28] MEDS: Furosemide 40 MG Tab PO SCH (08:10)
[2021-01-28] MEDS: Acetaminophen Soln 160 MG/5 ML UD Cup PO PRN (08:23)
[2021-01-28] MEDS: traMADol 50 MG Tab PO PRN (21:27)
[2021-01-28] MEDS: Loperamide 2 MG Tab PO PRN (21:48)
[2021-01-29] MEDS: hydrALAZINE 10 MG Tab PO SCH ×3 (06:06→21:30)
[2021-01-29] MEDS: Lactobacillus Rhamnosus GG (Probiotic) Cap PO SCH ×2 (08:18→21:30)
[2021-01-29] MEDS: buPROPion 150 MG Tab.ER PO SCH (08:18)
[2021-01-29] MEDS: Allopurinol 100 MG Tab PO SCH (08:18)
[2021-01-29] MEDS: Levothyroxine 100 MCG Tab PO SCH (08:18)
[2021-01-29] MEDS: Aspirin 81 MG Tab.EC PO SCH (08:18)
[2021-01-29] MEDS: amLODIPine 5 MG Tab PO SCH (08:18)
[2021-01-29] MEDS: Furosemide 40 MG Tab PO SCH (08:18)
[2021-01-29] MEDS: Cholecalciferol (Vitamin D3) Drops 400 Units/1 ML 50 ML Bottle PO SCH (08:19)
[2021-01-29] MEDS: Acetaminophen Soln 160 MG/5 ML UD Cup PO PRN (08:19)
[2021-01-29] MEDS: Citalopram 20 MG Tab PO SCH (08:19)
[2021-01-29] MEDS: traMADol 50 MG Tab PO PRN (21:31)
[2021-01-30] MEDS: hydrALAZINE 10 MG Tab PO SCH ×3 (06:25→22:07)
[2021-01-30] MEDS: Lactobacillus Rhamnosus GG (Probiotic) Cap PO SCH ×2 (07:11→19:48)
[2021-01-30] MEDS: Levothyroxine 100 MCG Tab PO SCH (07:11)
[2021-01-30] MEDS: amLODIPine 5 MG Tab PO SCH (07:11)
[2021-01-30] MEDS: buPROPion 150 MG Tab.ER PO SCH (07:11)
[2021-01-30] MEDS: Allopurinol 100 MG Tab PO SCH (07:12)
[2021-01-30] MEDS: Citalopram 20 MG Tab PO SCH (07:12)
[2021-01-30] MEDS: Cholecalciferol (Vitamin D3) Drops 400 Units/1 ML 50 ML Bottle PO SCH (07:12)
[2021-01-30] MEDS: Furosemide 40 MG Tab PO SCH (07:12)
[2021-01-30] MEDS: Aspirin 81 MG Tab.EC PO SCH (07:12)
--- NOTE | 2021-01-30 14:13 | PCM.SN.2 ---
- Free Text/Narrative Note: Reviewed patients vitals and recent documentation. BP is looking much improved, no medicaiton adjustment needed. Nursing staff reports that she is doing well with therapies. Using the walker and walking 3 times daily. Patient reports also doing well. She does have weakness yet but her pain is doing a lot better. There continues to be some numbness in the left upper leg. By the 3rd walk of the day she is more tired and it is more difficult for her. She was able to dress herself this morning. Nursing staff to notify me of any concerns.
[2021-01-30] MEDS: traMADol 50 MG Tab PO PRN (22:10)
[2021-01-31] MEDS: Acetaminophen Soln 160 MG/5 ML UD Cup PO PRN (00:55)
[2021-01-31] MEDS: hydrALAZINE 10 MG Tab PO SCH ×3 (06:05→21:19)
[2021-01-31] MEDS: Aspirin 81 MG Tab.EC PO SCH (07:35)
[2021-01-31] MEDS: Furosemide 40 MG Tab PO SCH (07:36)
[2021-01-31] MEDS: Lactobacillus Rhamnosus GG (Probiotic) Cap PO SCH ×2 (07:36→20:17)
[2021-01-31] MEDS: Levothyroxine 100 MCG Tab PO SCH (07:36)
[2021-01-31] MEDS: buPROPion 150 MG Tab.ER PO SCH (07:36)
[2021-01-31] MEDS: Allopurinol 100 MG Tab PO SCH (07:37)
[2021-01-31] MEDS: amLODIPine 5 MG Tab PO SCH (07:37)
[2021-01-31] MEDS: Cholecalciferol (Vitamin D3) Drops 400 Units/1 ML 50 ML Bottle PO SCH (07:38)
[2021-01-31] MEDS: Citalopram 20 MG Tab PO SCH (07:38)
[2021-01-31] MEDS: traMADol 50 MG Tab PO PRN (21:24)
[2021-02-01] MEDS: hydrALAZINE 10 MG Tab PO SCH ×3 (06:12→21:28)
[2021-02-01] MEDS: Cholecalciferol (Vitamin D3) Drops 400 Units/1 ML 50 ML Bottle PO SCH (07:39)
[2021-02-01] MEDS: Furosemide 40 MG Tab PO SCH (07:41)
[2021-02-01] MEDS: buPROPion 150 MG Tab.ER PO SCH (07:41)
[2021-02-01] MEDS: Levothyroxine 100 MCG Tab PO SCH (07:43)
[2021-02-01] MEDS: Allopurinol 100 MG Tab PO SCH (07:43)
[2021-02-01] MEDS: Citalopram 20 MG Tab PO SCH (07:44)
[2021-02-01] MEDS: Lactobacillus Rhamnosus GG (Probiotic) Cap PO SCH ×2 (07:45→20:14)
[2021-02-01] MEDS: Aspirin 81 MG Tab.EC PO SCH (07:46)
[2021-02-01] MEDS: amLODIPine 5 MG Tab PO SCH (07:47)
[2021-02-01] MEDS: Acetaminophen Soln 160 MG/5 ML UD Cup PO PRN (21:29)
[2021-02-02] MEDS: hydrALAZINE 10 MG Tab PO SCH ×3 (06:00→21:16)
[2021-02-02] MEDS: Cholecalciferol (Vitamin D3) Drops 400 Units/1 ML 50 ML Bottle PO SCH (08:09)
[2021-02-02] MEDS: Lactobacillus Rhamnosus GG (Probiotic) Cap PO SCH ×2 (08:10→21:15)
[2021-02-02] MEDS: Aspirin 81 MG Tab.EC PO SCH (08:10)
[2021-02-02] MEDS: Furosemide 40 MG Tab PO SCH (08:11)
[2021-02-02] MEDS: buPROPion 150 MG Tab.ER PO SCH (08:12)
[2021-02-02] MEDS: Allopurinol 100 MG Tab PO SCH (08:12)
[2021-02-02] MEDS: amLODIPine 5 MG Tab PO SCH (08:12)
[2021-02-02] MEDS: Levothyroxine 100 MCG Tab PO SCH (08:13)
[2021-02-02] MEDS: Citalopram 20 MG Tab PO SCH (08:13)
[2021-02-02] MEDS: Acetaminophen Soln 160 MG/5 ML UD Cup PO PRN (08:16)
[2021-02-03] MEDS: hydrALAZINE 10 MG Tab PO SCH ×3 (06:01→21:32)
[2021-02-03] MEDS: Citalopram 20 MG Tab PO SCH (08:11)
[2021-02-03] MEDS: Levothyroxine 100 MCG Tab PO SCH (08:11)
[2021-02-03] MEDS: Lactobacillus Rhamnosus GG (Probiotic) Cap PO SCH ×2 (08:12→20:16)
[2021-02-03] MEDS: Aspirin 81 MG Tab.EC PO SCH (08:13)
[2021-02-03] MEDS: Cholecalciferol (Vitamin D3) Drops 400 Units/1 ML 50 ML Bottle PO SCH (08:13)
[2021-02-03] MEDS: Furosemide 40 MG Tab PO SCH (08:14)
[2021-02-03] MEDS: amLODIPine 5 MG Tab PO SCH (08:14)
[2021-02-03] MEDS: Allopurinol 100 MG Tab PO SCH (08:18)
[2021-02-03] MEDS: buPROPion 150 MG Tab.ER PO SCH (08:29)
[2021-02-04] MEDS: hydrALAZINE 10 MG Tab PO SCH ×3 (05:56→21:53)
[2021-02-04] MEDS: Citalopram 20 MG Tab PO SCH (08:35)
[2021-02-04] MEDS: Lactobacillus Rhamnosus GG (Probiotic) Cap PO SCH ×2 (08:36→19:38)
[2021-02-04] MEDS: Cholecalciferol (Vitamin D3) Drops 400 Units/1 ML 50 ML Bottle PO SCH (08:36)
[2021-02-04] MEDS: Aspirin 81 MG Tab.EC PO SCH (08:37)
[2021-02-04] MEDS: amLODIPine 5 MG Tab PO SCH (08:38)
[2021-02-04] MEDS: Furosemide 40 MG Tab PO SCH (08:38)
[2021-02-04] MEDS: Levothyroxine 100 MCG Tab PO SCH (08:39)
[2021-02-04] MEDS: buPROPion 150 MG Tab.ER PO SCH (08:40)
[2021-02-04] MEDS: Allopurinol 100 MG Tab PO SCH (08:40)
[2021-02-04] MEDS ORDERED: Furosemide 40 MG Tab PO ONE (18:38)
[2021-02-04 19:32] LABS: ANION GAP 12.8 meq/L (7-15)
--- NOTE | 2021-02-04 22:46 | PCM.SN.2 ---
- Free Text/Narrative Note: Received call from the floor at 20:30 to check on the patient for fluid overload. Patient was transferred to our swingbed for rehabilitation for back pain and left leg radiculopathy. She had an AURORA and ended up with bleeding into the left leg. Concern for the patient was swelling of the lower legs and left arm. Patient states she is noticing the swelling but feeling overall well. She is doing physical therapy but her left leg is still week and she is struggling with being independent. NOt short of breath. REivew of the chart finds that admission she was 196 pounds on 01/24 and had baseline labs of a creatinine of 1.72. She takes 40 mg of lasix daily and has been doing so with limited diuresis. Labs today reveal a creatnine of 2.18 and weight of 207. She is not on sodium restriction. BUn was 156 and albumin was 3.1. I do not find a TSH. Examination of the patient reveal good vital signs Vital Signs Temp 36.7 C 02/04/21 19:45 Pulse 68 02/04/21 19:45 Resp 16 02/04/21 19:45 BP 161/79 H 02/04/21 21:53 Pulse Ox 96 02/04/21 19:45 Intake & Output 02/04/21 02/04/21 02/04/21 06:59 14:59 22:59 Intake Total 1280 480 Balance 1280 480 Intake: Intake, Oral Amount 1280 480 Oral Fluids 640 240 Other: Breakfast Percent 100 Consumed Lunch Percent Consumed 100 Dinner Percent Consumed 100 Total, Intake Amount 320 240 Number of Voids 1 Laboratory Results - last 24 hr 02/04/21 02/04/21 Range/Units 19:00 19:00 WBC 8.4 (4.0-10.2) K/uL RBC 3.81 (3.77-5.09) M/uL Hgb 11.9 (11.7-15.5) g/dL Hct 36.6 (34.0-46.0) % MCV 96.1 (84.0-98.0) fL MCH 31.2 (28.2-33.3) pg MCHC 32.5 (31.7-36.0) g/dL RDW 15.4 H (11.2-14.1) % Plt Count 244 (150-350) K/uL Neut % (Auto) 79.3 (45.0-80.0) % Lymph % (Auto) 9.8 L (10.0-50.0) % Sierra % (Auto) 6.8 (2.0-14.0) % Eos % (Auto) 3.9 (0.0-5.0) % Baso % (Auto) 0.2 (0.0-2.0) % Neut # (Auto) 6.64 (1.40-7.00) K/uL Lymph # (Auto) 0.82 (0.50-3.50) K/uL Sierra # (Auto) 0.57 (0.00-1.00) K/uL Eos # (Auto) 0.33 (0.00-0.50) K/uL Baso # (Auto) 0.02 (0.00-0.20) K/uL Sodium 140 (136-145) mmol/L Potassium 3.4 L (3.5-5.1) mmol/L Chloride 104 (98-107) mmol/L Carbon Dioxide 26.6 (21.0-32.0) mmol/L Anion Gap 12.8 (7-15) meq/L BUN 51 H (7-18) mg/dL Creatinine 2.18 H (0.51-1.17) mg/dL Est Cr Clr Drug Dosing 16.88 mL/min Estimated GFR (MDRD) 22 mL/min Glucose 213 H (70-99) mg/dL Calcium 8.9 (8.5-10.1) mg/dL Total Bilirubin 0.4 (0.2-1.0) mg/dL AST 22 (15-37) U/L ALT 30 (12-78) U/L Alkaline Phosphatase 80 (46-116) IU/L NT-Pro-B Natriuret Pep 156 H (0-125) pg/mL Total Protein 6.3 L (6.4-8.2) g/dL Albumin 3.1 L (3.4-5.0) g/dL left arm with swelling and pitting edema 1+ especially on the inferior surfaces from sitting in the chair. 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 Lower extremities with dermis statis changes, swelling and start of blister formation consistent with peripheral edema overload. She is on in Geremias hose. No open lesions at this time. She does still have significant echymosis of the left inner and posterio thigh tracking to the foot. Good dorsalis pedis and posterior tibialis pulses noted in both lower extermities Assessment Fluid overload by exam with increased weight, no respiratory distress and low BNP. Plan: patient feels she needs extended therapy before she is safe to go home. Will continue swing bed status. Decision to treat the 11 pound weight gain over the last 11 days in the AM as no acute distress. At 0600 on 02/05/2021 will given 40 mg of LASIX IV. I did apply kendell wraps on the lower legs and nursing applied them to the left arm. These should remain in place unless she is showering for several days to help with fluid movement. Watch for ruptured blisters. Will recheck a BMP and TSH at 1400 tomorrow. Care handed back to PCP in the morning.
[2021-02-05] MEDS: Sodium Chloride 0.9% 10 ML Syringe FLUSH PRN ×2 (05:59→20:30)
[2021-02-05] MEDS: hydrALAZINE 10 MG Tab PO SCH ×3 (06:00→20:59)
[2021-02-05] MEDS ORDERED: Furosemide 40 MG/4 ML VIAL IVPUSH ONE (06:00)
[2021-02-05] MEDS: Cholecalciferol (Vitamin D3) Drops 400 Units/1 ML 50 ML Bottle PO SCH (08:20)
[2021-02-05] MEDS: Aspirin 81 MG Tab.EC PO SCH (08:20)
[2021-02-05] MEDS: Furosemide 40 MG Tab PO SCH (08:21)
[2021-02-05] MEDS: Lactobacillus Rhamnosus GG (Probiotic) Cap PO SCH ×2 (08:21→20:31)
[2021-02-05] MEDS: amLODIPine 5 MG Tab PO SCH (08:22)
[2021-02-05] MEDS: Levothyroxine 100 MCG Tab PO SCH (08:22)
[2021-02-05] MEDS: Citalopram 20 MG Tab PO SCH (08:23)
[2021-02-05] MEDS: Allopurinol 100 MG Tab PO SCH (08:23)
[2021-02-05] MEDS: buPROPion 150 MG Tab.ER PO SCH (08:24)
--- NOTE | 2021-02-05 11:19 | PCM.CST ---
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
[2021-02-05] MEDS ORDERED: Furosemide 40 MG Tab PO ONE (13:00)
[2021-02-05 14:46] LABS: ANION GAP 10.9 meq/L (7-15)
[2021-02-05] MEDS: Potassium Bicarbonate/Cit Ac 20 MEQ Effervescent Tab PO SCH ×2 (16:20→17:42)
[2021-02-05] MEDS: Furosemide 40 MG/4 ML VIAL IVPUSH SCH ×2 (17:56→20:30)
[2021-02-05] MEDS ORDERED: Potassium Bicarbonate/Cit Ac 20 MEQ Effervescent Tab PO ONE (20:00)
[2021-02-06] MEDS: hydrALAZINE 10 MG Tab PO SCH ×2 (06:02→14:39)
[2021-02-06] MEDS: Levothyroxine 150 MCG Tab PO SCH (07:15)
[2021-02-06] MEDS: Lactobacillus Rhamnosus GG (Probiotic) Cap PO SCH ×2 (07:15→20:12)
[2021-02-06] MEDS: amLODIPine 5 MG Tab PO SCH (07:17)
[2021-02-06] MEDS: Citalopram 20 MG Tab PO SCH (07:18)
[2021-02-06] MEDS: Allopurinol 100 MG Tab PO SCH (07:19)
[2021-02-06] MEDS: buPROPion 150 MG Tab.ER PO SCH (07:20)
[2021-02-06] MEDS: Cholecalciferol (Vitamin D3) Drops 400 Units/1 ML 50 ML Bottle PO SCH (07:20)
[2021-02-06] MEDS: Potassium Bicarbonate/Cit Ac 20 MEQ Effervescent Tab PO SCH ×2 (07:21→17:41)
[2021-02-06] MEDS: Aspirin 81 MG Tab.EC PO SCH (07:23)
[2021-02-06 07:47] LABS: ANION GAP 9.5 meq/L (7-15)
[2021-02-06] MEDS: Furosemide 40 MG/4 ML VIAL IVPUSH SCH (08:58)
--- NOTE | 2021-02-06 16:55 | PCM.SN.2 ---
- Free Text/Narrative Note: Patient noted to develop sudden increased edema. Weight check showed approx 11 pound weight gain since admission. Lasix adjusted. Wraps applied to legs and left arm. Only noted change from 94.06 kg down to 93.08 kg over last few days. BP remains improved. Creatinine also has been steadily creeping up since admiss ion, going from 1.49 to 2.21. Call placed to [facility] and patient reviewed with her Technical Coordinator, Dr. Parmar. He recommended decreasing Amlodipine as it has associated edema and wanted to increase Hydralazine to 25mg TID. He wants BPs to be a bit more improved. Also recommended holding Lasix as it is likely contributing to rising Cr and also some rise in sodium. He did not recommend changing to different diuretic at this time. He does want to see patient in 4-8 weeks at his office for follow up.
[2021-02-06] MEDS: Sodium Chloride 0.9% 10 ML Syringe FLUSH PRN (20:15)
[2021-02-06] MEDS: hydrALAZINE 50 MG Tab PO SCH (21:36)
[2021-02-07] MEDS: hydrALAZINE 50 MG Tab PO SCH ×3 (06:24→22:13)
[2021-02-07] MEDS: amLODIPine 5 MG Tab PO SCH (08:57)
[2021-02-07] MEDS: buPROPion 150 MG Tab.ER PO SCH (08:57)
[2021-02-07] MEDS: Citalopram 20 MG Tab PO SCH (09:02)
[2021-02-07] MEDS: Allopurinol 100 MG Tab PO SCH (09:02)
[2021-02-07] MEDS: Lactobacillus Rhamnosus GG (Probiotic) Cap PO SCH ×2 (09:02→20:29)
[2021-02-07] MEDS: Potassium Bicarbonate/Cit Ac 20 MEQ Effervescent Tab PO SCH (09:03)
[2021-02-07] MEDS: Levothyroxine 150 MCG Tab PO SCH (09:03)
[2021-02-07] MEDS: Cholecalciferol (Vitamin D3) Drops 400 Units/1 ML 50 ML Bottle PO SCH (09:04)
[2021-02-07] MEDS: Aspirin 81 MG Tab.EC PO SCH (09:07)
[2021-02-07] MEDS: Furosemide 40 MG/4 ML VIAL IVPUSH SCH (09:07)
[2021-02-07] MEDS: Sodium Chloride 0.9% 10 ML Syringe FLUSH PRN ×2 (09:09→13:35)
[2021-02-07] MEDS ORDERED: Sodium Chloride 0.9% 1,000 ML IV ONE (11:57)
[2021-02-08] MEDS: hydrALAZINE 50 MG Tab PO SCH ×3 (06:25→22:05)
[2021-02-08] MEDS: Levothyroxine 150 MCG Tab PO SCH (07:33)
[2021-02-08] MEDS: Allopurinol 100 MG Tab PO SCH (07:33)
[2021-02-08] MEDS: Cholecalciferol (Vitamin D3) Drops 400 Units/1 ML 50 ML Bottle PO SCH (07:34)
[2021-02-08] MEDS: Lactobacillus Rhamnosus GG (Probiotic) Cap PO SCH ×2 (07:34→20:15)
[2021-02-08] MEDS: Citalopram 20 MG Tab PO SCH (07:34)
[2021-02-08] MEDS: Aspirin 81 MG Tab.EC PO SCH (07:35)
[2021-02-08] MEDS: buPROPion 150 MG Tab.ER PO SCH (07:36)
[2021-02-08] MEDS: amLODIPine 5 MG Tab PO SCH (07:39)
[2021-02-08] MEDS: Sodium Chloride 0.9% 10 ML Syringe FLUSH PRN ×2 (10:20→22:07)
[2021-02-09] MEDS: hydrALAZINE 50 MG Tab PO SCH ×3 (06:11→22:05)
[2021-02-09] MEDS: Aspirin 81 MG Tab.EC PO SCH (07:10)
[2021-02-09] MEDS: buPROPion 150 MG Tab.ER PO SCH (07:11)
[2021-02-09] MEDS: Cholecalciferol (Vitamin D3) Drops 400 Units/1 ML 50 ML Bottle PO SCH (07:11)
[2021-02-09] MEDS: Lactobacillus Rhamnosus GG (Probiotic) Cap PO SCH ×2 (07:12→20:30)
[2021-02-09] MEDS: Levothyroxine 150 MCG Tab PO SCH (07:12)
[2021-02-09] MEDS: amLODIPine 5 MG Tab PO SCH (07:13)
[2021-02-09] MEDS: Citalopram 20 MG Tab PO SCH (07:13)
[2021-02-09] MEDS: Allopurinol 100 MG Tab PO SCH (07:14)
[2021-02-09] MEDS: Loperamide 2 MG Tab PO PRN (09:10)
[2021-02-09 10:00] LABS: ANION GAP 6.8 meq/L (7-15)
[2021-02-10] MEDS: hydrALAZINE 50 MG Tab PO SCH ×3 (06:04→21:01)
[2021-02-10] MEDS: Cholecalciferol (Vitamin D3) Drops 400 Units/1 ML 50 ML Bottle PO SCH (07:15)
[2021-02-10] MEDS: Lactobacillus Rhamnosus GG (Probiotic) Cap PO SCH ×2 (07:15→20:23)
[2021-02-10] MEDS: Aspirin 81 MG Tab.EC PO SCH (07:16)
[2021-02-10] MEDS: amLODIPine 5 MG Tab PO SCH (07:22)
[2021-02-10] MEDS: Citalopram 20 MG Tab PO SCH (07:23)
[2021-02-10] MEDS: Allopurinol 100 MG Tab PO SCH (07:23)
[2021-02-10] MEDS: buPROPion 150 MG Tab.ER PO SCH (07:24)
[2021-02-10] MEDS: Levothyroxine 150 MCG Tab PO SCH (07:24)
[2021-02-11] MEDS: hydrALAZINE 50 MG Tab PO SCH ×3 (06:00→21:08)
[2021-02-11] MEDS ORDERED: Furosemide 20 MG Tab PO ONE ×2 (07:29→12:53)
[2021-02-11] MEDS: Citalopram 20 MG Tab PO SCH (07:36)
[2021-02-11] MEDS: Lactobacillus Rhamnosus GG (Probiotic) Cap PO SCH ×2 (07:37→19:43)
[2021-02-11] MEDS: Cholecalciferol (Vitamin D3) Drops 400 Units/1 ML 50 ML Bottle PO SCH (07:37)
[2021-02-11] MEDS: Aspirin 81 MG Tab.EC PO SCH (07:39)
[2021-02-11] MEDS: amLODIPine 5 MG Tab PO SCH (07:41)
[2021-02-11] MEDS: Levothyroxine 150 MCG Tab PO SCH (07:41)
[2021-02-11] MEDS: Allopurinol 100 MG Tab PO SCH (07:42)
[2021-02-11] MEDS: buPROPion 150 MG Tab.ER PO SCH (07:42)
[2021-02-11 08:14] LABS: ANION GAP 5.2 meq/L (7-15)
[2021-02-11] MEDS: Furosemide 20 MG Tab PO SCH ×2 (09:31→13:03)
[2021-02-11] MEDS ORDERED: traMADol 50 MG Tab PO ONE (17:29)
[2021-02-11] MEDS: traMADol 50 MG Tab PO PRN (23:53)
[2021-02-12] MEDS: hydrALAZINE 50 MG Tab PO SCH ×3 (05:59→22:52)
[2021-02-12] MEDS: Lactobacillus Rhamnosus GG (Probiotic) Cap PO SCH ×2 (07:51→20:19)
[2021-02-12] MEDS: amLODIPine 5 MG Tab PO SCH (07:51)
[2021-02-12] MEDS: Citalopram 20 MG Tab PO SCH (07:51)
[2021-02-12] MEDS: Furosemide 20 MG Tab PO SCH ×2 (07:51→11:29)
[2021-02-12] MEDS: buPROPion 150 MG Tab.ER PO SCH (07:52)
[2021-02-12] MEDS: Levothyroxine 150 MCG Tab PO SCH (07:52)
[2021-02-12] MEDS: Allopurinol 100 MG Tab PO SCH (07:52)
[2021-02-12] MEDS: Cholecalciferol (Vitamin D3) Drops 400 Units/1 ML 50 ML Bottle PO SCH (07:53)
[2021-02-12] MEDS: Aspirin 81 MG Tab.EC PO SCH (07:54)
[2021-02-12] MEDS: Acetaminophen Soln 160 MG/5 ML UD Cup PO PRN (13:15)
[2021-02-13] MEDS: hydrALAZINE 50 MG Tab PO SCH ×3 (05:06→20:59)
[2021-02-13] MEDS: traMADol 50 MG Tab PO PRN (05:09)
[2021-02-13] MEDS: Lactobacillus Rhamnosus GG (Probiotic) Cap PO SCH ×2 (07:54→20:57)
[2021-02-13] MEDS: Cholecalciferol (Vitamin D3) Drops 400 Units/1 ML 50 ML Bottle PO SCH (07:55)
[2021-02-13] MEDS: Furosemide 20 MG Tab PO SCH ×2 (07:56→11:44)
[2021-02-13] MEDS: Allopurinol 100 MG Tab PO SCH (07:57)
[2021-02-13] MEDS: buPROPion 150 MG Tab.ER PO SCH (07:57)
[2021-02-13] MEDS: Citalopram 20 MG Tab PO SCH (07:57)
[2021-02-13] MEDS: Levothyroxine 150 MCG Tab PO SCH (07:58)
[2021-02-13] MEDS: Aspirin 81 MG Tab.EC PO SCH (07:59)
--- NOTE | 2021-02-13 14:06 | PCM.SN.2 ---
- Free Text/Narrative Note: Labs and vitals reviewed. Her creatinine has improved from 2.38 on 02/07 to 1.89 on 02/11. GFR is now 25. Blood pressure also improved at 139/63. Will continue on current medications. There is still some LE edema present at a 1-2 + pitting. Continue with VANESA wraps to lower legs. Patient is still working with therapy and walking 3 times a day. Will likely discharge the end of next week if she continues to progress. Recheck labs on Wednesday and .
[2021-02-14] MEDS: hydrALAZINE 50 MG Tab PO SCH ×3 (06:22→21:15)
[2021-02-14] MEDS: Cholecalciferol (Vitamin D3) Drops 400 Units/1 ML 50 ML Bottle PO SCH (08:06)
[2021-02-14] MEDS: Aspirin 81 MG Tab.EC PO SCH (08:07)
[2021-02-14] MEDS: buPROPion 150 MG Tab.ER PO SCH (08:08)
[2021-02-14] MEDS: Allopurinol 100 MG Tab PO SCH (08:08)
[2021-02-14] MEDS: Citalopram 20 MG Tab PO SCH (08:08)
[2021-02-14] MEDS: Levothyroxine 150 MCG Tab PO SCH (08:09)
[2021-02-14] MEDS: Lactobacillus Rhamnosus GG (Probiotic) Cap PO SCH ×2 (08:09→20:10)
[2021-02-14] MEDS: Furosemide 20 MG Tab PO SCH ×2 (08:22→11:19)
[2021-02-15] MEDS: hydrALAZINE 50 MG Tab PO SCH ×3 (06:15→21:18)
[2021-02-15] MEDS: Furosemide 20 MG Tab PO SCH ×2 (07:11→11:08)
[2021-02-15] MEDS: buPROPion 150 MG Tab.ER PO SCH (07:11)
[2021-02-15] MEDS: Aspirin 81 MG Tab.EC PO SCH (07:11)
[2021-02-15] MEDS: Cholecalciferol (Vitamin D3) Drops 400 Units/1 ML 50 ML Bottle PO SCH (07:11)
[2021-02-15] MEDS: Lactobacillus Rhamnosus GG (Probiotic) Cap PO SCH ×2 (07:12→20:15)
[2021-02-15] MEDS: Allopurinol 100 MG Tab PO SCH (07:12)
[2021-02-15] MEDS: Levothyroxine 150 MCG Tab PO SCH (07:12)
[2021-02-15] MEDS: Citalopram 20 MG Tab PO SCH (07:12)
[2021-02-16] MEDS: hydrALAZINE 50 MG Tab PO SCH ×3 (06:08→21:21)
[2021-02-16] MEDS: buPROPion 150 MG Tab.ER PO SCH (08:07)
[2021-02-16] MEDS: Furosemide 20 MG Tab PO SCH ×2 (08:07→11:37)
[2021-02-16] MEDS: Levothyroxine 150 MCG Tab PO SCH (08:08)
[2021-02-16] MEDS: Citalopram 20 MG Tab PO SCH (08:10)
[2021-02-16] MEDS: Lactobacillus Rhamnosus GG (Probiotic) Cap PO SCH ×2 (08:10→19:23)
[2021-02-16] MEDS: Cholecalciferol (Vitamin D3) Drops 400 Units/1 ML 50 ML Bottle PO SCH (08:11)
[2021-02-16] MEDS: Allopurinol 100 MG Tab PO SCH (08:12)
[2021-02-16] MEDS: Aspirin 81 MG Tab.EC PO SCH (08:12)
[2021-02-17] MEDS: hydrALAZINE 50 MG Tab PO SCH ×3 (06:19→21:01)
[2021-02-17] MEDS: Aspirin 81 MG Tab.EC PO SCH (07:32)
[2021-02-17] MEDS: Cholecalciferol (Vitamin D3) Drops 400 Units/1 ML 50 ML Bottle PO SCH (07:32)
[2021-02-17] MEDS: Levothyroxine 150 MCG Tab PO SCH (07:33)
[2021-02-17] MEDS: buPROPion 150 MG Tab.ER PO SCH (07:33)
[2021-02-17] MEDS: Furosemide 20 MG Tab PO SCH ×2 (07:33→11:26)
[2021-02-17] MEDS: Lactobacillus Rhamnosus GG (Probiotic) Cap PO SCH ×2 (07:34→20:25)
[2021-02-17] MEDS: Allopurinol 100 MG Tab PO SCH (07:34)
[2021-02-17] MEDS: Citalopram 20 MG Tab PO SCH (07:34)
[2021-02-17 07:42] LABS: ANION GAP 8.8 meq/L (7-15)
[2021-02-18] MEDS: hydrALAZINE 50 MG Tab PO SCH ×3 (06:16→21:32)
[2021-02-18] MEDS: Cholecalciferol (Vitamin D3) Drops 400 Units/1 ML 50 ML Bottle PO SCH (08:45)
[2021-02-18] MEDS: Lactobacillus Rhamnosus GG (Probiotic) Cap PO SCH ×2 (08:46→20:10)
[2021-02-18] MEDS: Allopurinol 100 MG Tab PO SCH (08:46)
[2021-02-18] MEDS: Furosemide 20 MG Tab PO SCH ×2 (08:47→11:45)
[2021-02-18] MEDS: buPROPion 150 MG Tab.ER PO SCH (08:47)
[2021-02-18] MEDS: Levothyroxine 150 MCG Tab PO SCH (08:48)
[2021-02-18] MEDS: Citalopram 20 MG Tab PO SCH (08:48)
[2021-02-18] MEDS: Aspirin 81 MG Tab.EC PO SCH (08:49)
[2021-02-18] MEDS ORDERED: amLODIPine 5 MG Tab PO SCH (09:30)
[2021-02-19] MEDS: hydrALAZINE 50 MG Tab PO SCH ×3 (06:13→22:33)
[2021-02-19] MEDS: Citalopram 20 MG Tab PO SCH (07:47)
[2021-02-19] MEDS: Levothyroxine 150 MCG Tab PO SCH (07:48)
[2021-02-19] MEDS: Allopurinol 100 MG Tab PO SCH (07:48)
[2021-02-19] MEDS: buPROPion 150 MG Tab.ER PO SCH (07:48)
[2021-02-19] MEDS: Furosemide 20 MG Tab PO SCH ×2 (07:49→12:20)
[2021-02-19] MEDS: Lactobacillus Rhamnosus GG (Probiotic) Cap PO SCH ×2 (07:50→20:40)
[2021-02-19] MEDS: Cholecalciferol (Vitamin D3) Drops 400 Units/1 ML 50 ML Bottle PO SCH (07:50)
[2021-02-19] MEDS: Aspirin 81 MG Tab.EC PO SCH (07:51)
[2021-02-19 09:12] LABS: ANION GAP 6.5 meq/L (7-15)
[2021-02-19] MEDS: amLODIPine 5 MG Tab PO SCH (09:12)
[2021-02-19 14:19] VITALS: PULSE 66
--- NOTE | 2021-02-19 22:12 | PCM.DCSUM1 ---
Discharge Summary - Hospital Course Brief History: Patient admitted to swing bed for strengthening/PT/OT after being initially admitted for sudden severe low back pain/new left leg weakness and numbness, and significantly elevated BP. Diagnosis: Stroke: No - Discharge Data Discharge Date: 02/20/21 Discharge Disposition: Home, Self-Care 01 Condition: Good - Referral to Home Health Reason for Homebound Status: Unable to drive. Limited mobility. Primary Care Physician: Rayne Pacheco NP Skilled Need: PT and Home Health - Discharge Diagnosis/Problem(s) (1) Acute pain of left hip SNOMED Code(s): 48791807 ICD Code: M25.552 - PAIN IN LEFT HIP Status: Acute Priority: High Current Visit: Yes Onset Date: 01/13/21 Problem Details: Acute/severe. Improved after epidural injection by anesthesia. Admitted to Swing Bed due to problems performing ADLs due to deconditioning. CT and MRI showed severe neural foraminal stenosis of L4-5 and L5-S1 which supected to be main contributing factor to pain and numbness in hip and thigh area. (2) Dehydration SNOMED Code(s): 10561646 ICD Code: E86.0 - DEHYDRATION Status: Acute Priority: Medium Current Visit: Yes Problem Details: Patient unable to ambulate and get access to fluid/food at home prior to admission. Resolved since admission with good urine output. (3) Hypertension SNOMED Code(s): 27739764 ICD Code: I10 - ESSENTIAL (PRIMARY) HYPERTENSION Status: Chronic Pr iority: High Current Visit: Yes Problem Details: Historically patient runs high per history. Initially noted to be 180-190s/100s. Losartan initially although worsening renal function so switched to hydralazine tid after reviewing patient with Nephrology at [facility]. Blood pressures much improved.. Her goal with DM and CKD would be under 130/80 per Nephrology. No CP SOB. Qualifiers: Hypertension type: primary hypertension Qualified Code(s): I10 - Essential (primary) hypertension (4) Impaired mobility and ADLs SNOMED Code(s): 827080182, 444586263 ICD Code: Z74.09 - OTHER REDUCED MOBILITY; Z78.9 - OTHER SPECIFIED HEALTH STATUS Status: Acute Priority: High Current Visit: Yes Onset Date: 01/13/21 Problem Details: as above. Was unable to perform ADLs at home such as obtaining food/dressing self/toileting. Much improved s/p PT/OT during Swing Bed stay. (5) Heart failure SNOMED Code(s): 76163954 ICD Code: I50.9 - HEART FAILURE, UNSPECIFIED Status: Chronic Priority: Low Current Visit: No Problem Details: No evidence of acute overload at this time. Qualifiers: Heart failure chronicity: unspecified (6) Left low back pain SNOMED Code(s): 263174305 ICD Code: M54.5 - LOW BACK PAIN Status: Acute Priority: High Current Visit: Yes Onset Date: 01/13/21 Problem Details: Some degree of chronic low back pain and neck pain. Hx DDD/scoliosis/osteoarthritis. This is new acute left hip/low back/medial thigh pain. Most likely from the formalinal stenosis diagnosed on the CT scan and had good relief with the initial epidural injection. 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 Is the cause of the patient current pain and disability after improvement of pain with epidural injection. (8) Numbness of left lower extremity SNOMED Code(s): 963060747 ICD Code: R20.0 - ANESTHESIA OF SKIN Status: Acute Priority: High Current Visit: Yes Onset Date: 01/13/21 Problem Details: New. As above. Left thigh area. (9) DM type 2 (diabetes mellitus, type 2) SNOMED Code(s): 68813941 ICD Code: E11.9 - TYPE 2 DIABETES MELLITUS WITHOUT COMPLICATIONS Status: Chronic Priority: Low Current Visit: No Problem Details: HgA1c was 5.6 during hospitalization. Stable during stay Qualifiers: Diabetes mellitus termite treater helper insulin use: without mcfp use Diabetes mellitus complication status: with kidney complications Diabetes mellitus complication detail: with chronic kidney disease Chronic kidney disease stage: stage 3 (moderate) Chronic kidney disease stage 3 subtype: stage 3b (GFR 30- 44) Qualified Code(s): E11.22 - Type 2 diabetes mellitus with diabetic chronic kidney disease; N18.32 - Chronic kidney disease, stage 3b (10) Depression with anxiety SNOMED Code(s): 654679540 ICD Code: F41.8 - OTHER SPECIFIED ANXIETY DISORDERS Status: Chronic Priority: Medium Current Visit: Yes Problem Details: Increased anxiety since pain started 01/13. Improved (11) History of gout SNOMED Code(s): 468963919 ICD Code: Z87.39 - PERSONAL HISTORY OF DISEASES OF THE MS SYS AND CONN TISS Status: Chronic Priority: Low Current Visit: No Problem Details: Taking Allopurinol. No recent problems. (12) Hypothyroidism SNOMED Code(s): 95289211 ICD Code: E03.9 - HYPOTHYROIDISM, UNSPECIFIED Status: Chronic Priority: Medium Current Visit: Yes Problem Details: TSH significantly elevated. Dosage increased and patient to follow up closely with PCP and have TSH rechecked in one month. Qualifiers: Hypothyroidism type: unspecified Qualified Code(s): E03.9 - Hypothyroidism, unspecified - Patient Summary/Data Consults: Consultations 01/24/21 13:13 Consult to Case Management/Senior Insight Manager [CONS] Routine OT Evaluation and Treatment [CONS] Routine PT Evaluation and Treatment [CONS] Routine Hospital Course: Patient did well during Swing Bed stay and actively participated with PT/OT. Both have signed off on patient and feel she can be able to return home with assistance from home health and ongoing PT at home. Patient made progress to point where it was felt she could get around her home and perform basic chores and also get mail/get to front door of her apartment building. BP and thyroid medications further adjusted during stay. There was some lower leg edema that was thought to be in part related to patient's overall decrease in activity and recent steroids. That improved with lasix. Also some variability with renal function. Patient reviewed several times with on-call MDs from [facility] and she is to follow up with their clinic in 4-6 weeks. Will also send referral for home health/home PT. Patient will also need Neurosurgery consult sent to [facility] so that she can be evaluated for the neuroforaminal stenosis/ongoing pain issues and be able to continue pain injections as needed near her home town. - Patient Instructions Diet: Limited Carb Activity: As Tolerated Other/Special Instructions: Follow up with Nephrology in 4-6 weeks. Medication changes as discussed. Home health and PT are being arranged. Follow up with primary provider first available appointment. - Discharge Plan *PRESCRIPTION DRUG MONITORING PROGRAM REVIEWED*: Not Applicable *COPY OF PRESCRIPTION DRUG MONITORING REPORT IN PATIENT [place]: Not Applicable Prescriptions/Med Rec: hydrALAZINE [Apresoline] 50 mg PO Q8H #90 tablet Levothyroxine 150 mcg PO ACBREAKFAST #30 tablet amLODIPine [Norvasc] 5 mg PO DAILY #30 tablet Home Medications: Home Meds Aspirin [Aspirin EC] 1 tab PO DAILY 01/21/21 [History] Citalopram Hydrobromide [Celexa] 1 tab PO DAILY 01/21/21 [History] Furosemide [Lasix] 1 tab PO QPM PRN 01/21/21 [History] Furosemide [Lasix] 2 tab PO QAM 01/21/21 [History] allopurinoL [Zyloprim] 1 tab PO DAILY 01/21/21 [History] buPROPion HCL [Bupropion Xl] 1 tab PO DAILY 01/21/21 [History] Cholecalciferol (Vitamin D3) [D--JUDITH Drops] 2,000 units PO DAILY bottle 02/19/21 [Rx] Levothyroxine 150 mcg PO ACBREAKFAST #30 tablet 02/19/21 [Rx] amLODIPine [Norvasc] 5 mg PO DAILY #30 tablet 02/19/21 [Rx] hydrALAZINE [Apresoline] 50 mg PO Q8H #90 tablet 02/19/21 [Rx] - Discharge Summary/Plan Comment DC Time >30 min.: No Total # of Minutes for Discharge Time: 30 - General Info Date of Service: 02/20/21 Admission Dx/Problem (Free Text: Acute low back pain, left leg weakness and numbness secondary to severe neuroforaminal stenosis L4-5, L5-S1 with associated deconditioning and inability to perform ADLs. HTN. Renal impairment. Subjective Update: Improved. Still with weakness left leg/numbness thigh. Tolerable intermittent low back/left hip discomfort. Functional Status: Reports: Pain Controlled, Tolerating Diet, Ambulating, Urinating. Denies: New Symptoms - Review of Systems General: Reports: No Symptoms HEENT: Reports: Glasses Pulmonary: Reports: No Symptoms Cardiovascular: Reports: No Symptoms Gastrointestinal: Reports: No Symptoms Genitourinary: Reports: No Symptoms Musculoskeletal: Reports: Other (No acute changes in chronic neck/shoulder pain. as above low back/left hip pain improved. ) Skin: Reports: No Symptoms Neurological: Reports: Difficulty Walking (chronic), Other (no acute changes). Denies: Trouble Speaking, Change in Speech Psychiatric: Reports: No Symptoms - Patient Data Vitals - Most Recent: Last Vital Signs Temp 36.4 C 02/19/21 07:46 Pulse 66 02/19/21 12:00 Resp 20 02/19/21 07:46 BP 142/63 H 02/19/21 14:18 Pulse Ox 95 02/19/21 07:46 Weight - Most Recent: 93.553 kg I&O - Last 24 hours: Intake & Output 02/19/21 02/19/21 02/19/21 06:59 14:59 22:59 Intake Total 150 1440 480 Balance 150 1440 480 Lab Results - Last 24 hrs: Laboratory Results - last 24 hr 02/19/21 02/19/21 Range/Units 07:45 07:45 WBC 7.8 (4.0-10.2) K/uL RBC 3.55 L (3.77-5.09) M/uL Hgb 11.2 L (11.7-15.5) g/dL Hct 35.1 (34.0-46.0) % MCV 98.9 H (84.0-98.0) fL MCH 31.5 (28.2-33.3) pg MCHC 31.9 (31.7-36.0) g/dL RDW 15.8 H (11.2-14.1) % Plt Count 272 (150-350) K/uL Neut % (Auto) 47.9 (45.0-80.0) % Lymph % (Auto) 16.3 (10.0-50.0) % [place] % (Auto) 8.4 (2.0-14.0) % Eos % (Auto) 26.6 H (0.0-5.0) % Baso % (Auto) 0.8 (0.0-2.0) % Neut # (Auto) 3.75 (1.40-7.00) K/uL Lymph # (Auto) 1.28 (0.50-3.50) K/uL [place] # (Auto) 0.66 (0.00-1.00) K/uL Eos # (Auto) 2.08 H (0.00-0.50) K/uL Baso # (Auto) 0.06 (0.00-0.20) K/uL Sodium 145 (136-145) mmol/L Potassium 3.6 (3.5-5.1) mmol/L Chloride 107 (98-107) mmol/L Carbon Dioxide 31.5 (21.0-32.0) mmol/L Anion Gap 6.5 L (7-15) meq/L BUN 61 H (7-18) mg/dL Creatinine 2.12 H (0.51-1.17) mg/dL Est Cr Clr Drug Dosing 17.36 mL/min Estimated GFR (MDRD) 22 mL/min Glucose 98 (70-99) mg/dL Calcium 9.1 (8.5-10.1) mg/dL Med Orders - Current: Current Medications Acetaminophen (Acetaminophen Soln 160 Mg/5 Ml Ud Cup) 650 mg PO Q6H PRN PRN Reason: Pain (mild 1-3) Last Admin: 02/12/21 13:15 Dose: 650 mg Documented by: Allopurinol (Allopurinol 100 Mg Tab) [address] [facility] Last Admin: 02/19/21 07:48 Dose: 100 mg Documented by: Amlodipine Besylate (Amlodipine 5 Mg Tab) [address] [facility] Last Admin: 02/19/21 09:12 Dose: 5 mg Documented by: Aspirin (Aspirin 81 Mg Tab.Ec) [address] [facility] Last Admin: 02/19/21 07:51 Dose: 81 mg Documented by: Bupropion HCl (Bupropion 150 Mg Tab.Er) [address] [facility] Last Admin: 02/19/21 07:48 Dose: 150 mg Documented by: Cholecalciferol (Cholecalciferol (Vitamin D3) Drops 400 Units/1 Ml 50 Ml Bottle) 2,[address] [facility] Last Admin: 02/19/21 07:50 Dose: 2,000 units Documented by: Citalopram Hydrobromide (Citalopram 20 Mg Tab) [address] [facility] Last Admin: 02/19/21 07:47 Dose: 20 mg Documented by: Furosemide (Furosemide 20 Mg Tab) [address] [facility] Last Admin: 02/19/21 12:20 Dose: 20 mg Documented by: Hydralazine HCl (Hydralazine 50 Mg Tab) [address] [facility] Last Admin: 02/19/21 14:18 Dose: 50 mg Documented by: Lactobacillus Rhamnosus (Lactobacillus Rhamnosus Gg (Probiotic) Cap) 1 cap PO 08,1999 [facility] Last Admin: 02/19/21 20:40 Dose: 1 cap Documented by: Levothyroxine Sodium (Levothyroxine 150 Mcg Tab) [address] [facility] Last Admin: 02/19/21 07:48 Dose: 150 mcg Documented by: Loperamide HCl (Loperamide 2 Mg Tab) 2 - 4 mg PO Q4H PRN PRN Reason: Diarrhea Last Admin: 02/09/21 09:10 Dose: 4 mg Documented by: Ondansetron HCl (Ondansetron 4 Mg/2 Ml Sdv) 4 mg IVPUSH Q6H PRN PRN Reason: Nausea/Vomiting Sodium Chloride (Sodium Chloride 0.9% 10 Ml Syringe) 10 ml FLUSH ASDIRECTED PRN PRN Reason: Keep Vein Open Last Admin: 02/08/21 22:07 Dose: 10 ml Documented by: Tramadol HCl (Tramadol 50 Mg Tab) 50 mg PO Q6H PRN PRN Reason: Pain Last Admin: 02/13/21 05:09 Dose: 50 mg Documented by: Discontinued Medications Amlodipine Besylate (Amlodipine 5 Mg Tab) [address] [facility] Last Admin: 02/06/21 07:17 Dose: 10 mg Documented by: Amlodipine Besylate (Amlodipine 5 Mg Tab) [address] [facility] Citalopram Hydrobromide (Citalopram 20 Mg Tab) [address] [facility] Last Admin: 02/18/21 08:48 Dose: 40 mg Documented by: Diazepam (Diazepam 5 Mg Tab) 5 mg PO Q12H PRN PRN Reason: Spasms Last Admin: 02/02/21 23:22 Dose: 5 mg Documented by: Diphtheria/Tetanus/Acell Pertussis (Diphtheria,Pertussis(Acell),Tetanus Vaccine 0.5 Ml Syringe) 0.5 ml IM .ONCE ONE Stop: 01/25/21 15:24 Last Admin: 01/25/21 16:03 Dose: 0.5 ml Documented by: Furosemide (Furosemide 40 Mg Tab) [address] [facility] Last Admin: 02/05/21 08:21 Dose: 40 mg Documented by: Furosemide (Furosemide 20 Mg Tab) [address] [facility] Stop: 01/28/21 08:01 Last Admin: 01/28/21 08:06 Dose: Not Given Documented by: Furosemide (Furosemide 40 Mg Tab) 40 mg PO ONETIME ONE Stop: 02/04/21 18:39 Last Admin: 02/04/21 19:37 Dose: 40 mg Documented by: Furosemide (Furosemide 40 Mg Tab) 40 mg PO ONETIME ONE Stop: 02/05/21 13:01 Last Admin: 02/05/21 13:57 Dose: 40 mg Documented by: Furosemide (Furosemide 40 Mg/4 Ml Vial) 40 mg IVPUSH DAILY ONE Stop: 02/05/21 06:01 Last Admin: 02/05/21 05:58 Dose: 40 mg Documented by: Furosemide (Furosemide 40 Mg/4 Ml Vial) 40 mg IVPUSH DAILY RONAL Stop: 02/07/21 17:01 Last Admin: 02/07/21 09:07 Dose: 40 mg Documented by: Furosemide (Furosemide 20 Mg Tab) 20 mg PO ONETIME ONE Stop: 02/11/21 07:30 Last Admin: 02/11/21 09:31 Dose: 20 mg Documented by: Furosemide (Furosemide 20 Mg Tab) 20 mg PO ONETIME ONE Stop: 02/11/21 12:54 Last Admin: 02/11/21 13:04 Dose: 20 mg Documented by: Hydralazine HCl (Hydralazine 10 Mg Tab) [address] [facility] Last Admin: 02/06/21 14:39 Dose: 10 mg Documented by: Hydralazine HCl (Hydralazine 50 Mg Tab) [address] [facility] Last Admin: 02/12/21 13:16 Dose: 25 mg Documented by: Sodium Chloride (Normal Saline) 1,000 mls @ 50 mls/hr IV .BOLUS ONE Stop: 02/08/21 07:56 Last Admin: 02/07/21 13:35 Dose: 50 mls/hr Documented by: Lactobacillus Rhamnosus (Lactobacillus Rhamnosus Gg (Probiotic) Cap) [address] [facility] Last Admin: 01/26/21 07:21 Dose: 1 cap Documented by: Levothyroxine Sodium (Levothyroxine 100 Mcg Tab) [address] [facility] Levothyroxine Sodium (Levothyroxine 88 Mcg Tab) [address] [facility] Levothyroxine Sodium (Levothyroxine 100 Mcg Tab) [address] [facility] Last Admin: 02/05/21 08:22 Dose: 100 mcg Documented by: Potassium Bicarbonate (Potassium Bicarbonate/Cit Ac 20 Meq Effervescent Tab) [address] [facility] Last Admin: 02/07/21 09:03 Dose: 20 meq Documented by: Potassium Bicarbonate (Potassium Bicarbonate/Cit Ac 20 Meq Effervescent Tab) 20 meq PO ONETIME ONE Stop: 02/05/21 20:01 Last Admin: 02/05/21 20:31 Dose: 20 meq Documented by: Sodium Chloride (Sodium Chloride 0.9% 10 Ml Syringe) 10 ml FLUSH ASDIRECTED PRN PRN Reason: Keep Vein Open Tramadol HCl (Tramadol 50 Mg Tab) 50 mg PO Q4H PRN PRN Reason: Pain (moderate 4-6) Last Admin: 01/31/21 21:24 Dose: 50 mg Documented by: Tramadol HCl (Tramadol 50 Mg Tab) [address] [facility] Last Admin: 01/26/21 15:50 Dose: Not Given Documented by: Tramadol HCl (Tramadol 50 Mg Tab) 50 mg PO ONETIME ONE Stop: 02/11/21 17:30 Last Admin: 02/11/21 17:56 Dose: 50 mg Documented by: - Exam Quality Assessment: Reports: DVT Prophylaxis General: Reports: Alert, Oriented, Cooperative, No Acute Distress HEENT: Reports: Pupils Equal, Pupils Reactive, EOMI, Mucous Membr. Moist/Stirling Neck: Reports: Supple Lungs: Reports: Clear to Auscultation, Normal Respiratory Effort Cardiovascular: Reports: Regular Rate, Regular Rhythm GI/Abdominal Exam: Soft, Non-Tender Back Exam: Reports: Paraspinal Tenderness (left low back). Denies: Muscle Spasm Extremities: Normal Capillary Refill, Pedal Edema (mild), Limited Range of Motion (due to age/hip replacements/discomfort in left hip and low back). No: Increased Warmth, Mottled, Pallor, Redness Skin: Reports: Warm, Dry, Intact Neurological: Reports: No New Focal Deficit Psy/Mental Status: Reports: Alert, Normal Affect, Normal Mood
[2021-02-20] MEDS: hydrALAZINE 50 MG Tab PO SCH (06:08)
[2021-02-20] MEDS: Furosemide 20 MG Tab PO SCH (07:24)
[2021-02-20] MEDS: Lactobacillus Rhamnosus GG (Probiotic) Cap PO SCH (07:24)
[2021-02-20] MEDS: amLODIPine 5 MG Tab PO SCH (07:24)
[2021-02-20] MEDS: Allopurinol 100 MG Tab PO SCH (07:25)
[2021-02-20] MEDS: Levothyroxine 150 MCG Tab PO SCH (07:25)
[2021-02-20] MEDS: buPROPion 150 MG Tab.ER PO SCH (07:25)
[2021-02-20] MEDS: Citalopram 20 MG Tab PO SCH (07:25)
[2021-02-20] MEDS: Cholecalciferol (Vitamin D3) Drops 400 Units/1 ML 50 ML Bottle PO SCH (07:26)
[2021-02-20] MEDS: Aspirin 81 MG Tab.EC PO SCH (07:27)
[2021-02-20 08:07] LABS: ANION GAP 8.5 meq/L (7-15)
[2021-02-20 09:04] VITALS: BP 138/72
== END 2021-02-20 10:05 | disposition home or self-care (01) | DRG 948 ==
LOC: LL.MS 13:13 → LL.SWG 01-31 13:57
PROVIDERS: ADMIT Nurse Practitioner Family; ATTEND Nurse Practitioner Family
DX: R53.81 Other malaise (principal); I13.0 Hypertensive heart and chronic kidney disease with heart failure and stage 1 through stage 4 chronic kidney disease, or unspecified chronic kidney disease; M48.07 Spinal stenosis, lumbosacral region; M48.061 Spinal stenosis, lumbar region without neurogenic claudication; E86.0 Dehydration; I50.9 Heart failure, unspecified; Z74.09 Other reduced mobility; N18.32 Chronic kidney disease, stage 3b; E11.22 Type 2 diabetes mellitus with diabetic chronic kidney disease; E03.9 Hypothyroidism, unspecified; R60.0 Localized edema; Z78.9 Other specified health status; Z87.39 Personal history of other diseases of the musculoskeletal system and connective tissue; Z79.82 Long term (current) use of aspirin; Z79.890 Hormone replacement therapy; Z79.899 Other long term (current) drug therapy
CPT/HCPCS: 36415; 72148; 73721-LT; 80048; 80053; 83880; 84443; 85025; 90471; 90715; 93970; 97035-GP; 97110-GO; 97110-GP; 97140-GP; 97162-GP; 97165-GO; 97530-GO; 97530-GP; 97535-GO; 99238; A9270-GY; J1940; J7030